=== PATIENT | female | born 1985 | race African-American/Black ===

== ENCOUNTER 2016-08-13 19:19 | Emergency (ER) | payer MEDICAID ==
--- NOTE | 2016-08-13 19:55 | ER Document Report ---
HPI - HPI Onset: Last week Onset/Duration: Gradual Pain Level: 2 Context: Patient is a 31-year-old female comes the ED complaining of a dry cough, nasal chris, and mild shortness of breath. She has also had a body ache and occ diarrhea. The symptoms have been ongoing for the last week. She has tried some neqf-vgr-aikgwgc meds with minimal relief. She still eating and drink without any problems. The cough is non-productive. Pt denies any smoking. Denies any fever, nasal discharge, ear pain, sore throat, palp, syncope, GRAHAM, abd pain, n/v, dysuria, or rash. Associated Symptoms: Body/muscle aches, Nonproductive cough, Diarrhea, Shortness of breath. denies: Chest pain, Chills, Earache, Fever, Headache, Hurts to breath, Leg swelling, Nausea, Vomiting, Rhinnorhea, Sinus pain/drainage , Sore throat, Sweating, Weakness Exacerbated by: Denies Relieved by: Denies - ROS Systems Reviewed and Negative: Yes All other systems reviewed and negative - REPRODUCTIVE Reproductive: REPORTS: : - DERM Skin Color: Normal Past Medical History - Social History Smoking Status: Never Smoker Chew tobacco use (# tins/day): No Frequency of alcohol use: Social Drug Abuse: None Family History: Reviewed & Not Pertinent Patient has suicidal ideation: No Patient has homicidal ideation: No - Past Medical History Cardiac Medical History: Reports: Hx Hypertension Denies: Hx Coronary Artery Disease, Hx Heart Attack, Hx Pulmonary Embolism, Hx Heart Murmur Pulmonary Medical History: Denies: Hx Asthma, Hx Bronchitis, Hx COPD, Hx Pneumonia, Hx Sleep Apnea - not current, Hx Tuberculosis Neurological Medical History: Denies: Hx Cerebrovascular Accident, Hx Seizures Endocrine Medical History: Renal/ Medical History: Reports: Hx Ovarian Cysts. Denies: Hx Peritoneal Dialysis GI Medical History: Reports: Hx Gastroesophageal Reflux Disease - with . Denies: Hx Hepatitis, Hx Hiatal Hernia, Hx Ulcer Musculoskeltal Medical History: Denies Hx Arthritis, Denies Hx Fibromyalgia Traumatic Medical History: Denies: Hx Fractures Infectious Medical History: Denies: Hx Hepatitis, Hx HIV Past Surgical History: Reports: Hx Cardiac Surgery - x 3, Hx Section - x3, Hx Tonsillectomy. Denies: Hx Hysterectomy, Hx Mastectomy, Hx Open Heart Surgery, Hx Pacemaker - Immunizations Hx Diphtheria, Pertussis, Tetanus Vaccination: Yes Vertical Provider Document - CONSTITUTIONAL Notes: PHYSICAL EXAMINATION: GENERAL: Well-appearing, well-nourished and in no acute distress. HEAD: Atraumatic, normocephalic. EYES: Pupils equal round and reactive to light, extraocular movements intact, sclera anicteric, conjunctiva are normal. ENT: EAC clear b/l. TM's intact b/l without erythema, fluid, or perforation. Nares patent and without discharge. oropharynx clear without exudates. No tonsilar hypertrophy or erythema. Moist mucous membranes. No sinus tenderness. NECK: Normal range of motion, supple without lymphadenopathy. No nuchal rigidity or meningismus. LUNGS: + mild rhonchi and wheeze to the rt lung. Left lung CTA. HEART: Regular rate and rhythm without murmurs, rubs, gallops. ABDOMEN: Soft, nontender, nondistended abdomen. No guarding, no rebound. No masses appreciated. Normal bowel sounds present. No CVA tenderness bilaterally. Musculoskeletal: FROM to passive/active. Strength 5+/5. Pt does have brace to left leg due to her Cerebral palsy. Extremities: No cyanosis, clubbing, or edema b/l. Peripheral pulses 2+. Capillary refill less than 3 seconds. NEUROLOGICAL: Cranial nerves grossly intact. Normal speech. Normal sensory, motor exams PSYCH: Normal mood, normal affect. SKIN: Warm, Dry, normal turgor, no rashes or lesions noted. - INFECTION CONTROL TRAVEL OUTSIDE OF THE [place] IN LAST 30 DAYS: No - RESPIRATORY O2 Sat by Pulse Oximetry: 100 Course - Re-evaluation Re-evalutation: Patient is an afebrile, well-hydrated, 31yo female who presents with a URI/cough , suspect viral. Vitals stable (pulse 96 on last check). CXR negative. Duoneb performed today which helped resolve the adventitious lung sounds on exam. Pt expressed improvement in breathing and overall condition. I will send her home with a medrol dose pack and inhaler. conservative measures otherwise: Maintain adequate fluid intake Take meds as directed/use inhaler as directed tylenol/ibuprofen as needed over the counter cold medication as needed for symptoms Humidified air may help F/u: with your PCM in 2-3 days for a recheck Return to the ED with any fever, worsening pain, chest pain, shortness of breath , trouble swallowing/breathing, abdominal pain, n/v/d, or worsening symptoms otherwise. After performing a Medical Screening Examination, I estimate there is LOW risk for ACUTE CORONARY SYNDROME, RESPIRATORY FAILURE, SEPSIS OR MENINGITIS, thus I consider the discharge disposition reasonable. I have reevaluated this patient multiple times and no significant life threatening changes are noted. The patient and I have discussed the diagnosis and risks, and we agree with discharging home with close follow-up. We also discussed returning to the Emergency Department immediately if new or worsening symptoms occur. We have discussed the symptoms which are most concerning (e.g., changing or worsening pain, trouble swallowing or breathing, neck stiffness, fever) that necessitate immediate return. 08/13/16 20:58 - Vital Signs Vital signs: Temp Pulse Resp BP Pulse Ox 98.0 F 104 H 20 149/99 H 100 08/13/16 19:24 08/13/16 19:24 08/13/16 19:24 08/13/16 19:24 08/13/16 19:24 Discharge - Discharge Clinical Impression: Cough Condition: Stable Disposition: HOME, SELF-CARE Additional Instructions: Maintain adequate fluid intake Take meds as directed/use inhaler as directed tylenol/ibuprofen as needed over the counter cold medication as needed for symptoms Humidified air may help F/u: with your PCM in 2-3 days for a recheck Return to the ED with any fever, worsening pain, chest pain, shortness of breath , trouble swallowing/breathing, abdominal pain, n/v/d, or worsening symptoms otherwise. Prescriptions: Albuterol Sulfate [Proair HFA Inhalation Aerosol 8.5 gm MDI] 2 puff IH Q4H PRN # 1 mdi PRN Reason: Methylprednisolone [Medrol Dosepack (4 mg/Tab) 21 Tab/Dosepak] 4 mg PO ASDIR PRN #21 tab.ds.pk PRN Reason: Forms: Elevated Blood Pressure Referrals: KAYCE BERNSTEIN NP [Primary Care Provider] - Follow up as needed
--- NOTE | 2016-08-13 20:19 | RADIOLOGY REPORT (SQ) ---
EXAM DESCRIPTION: CHEST PA/LAT COMPLETED DATE/TIME: 08/13/2016 8:09 pm REASON FOR STUDY: Cough, wheeze on right side COMPARISON: 02/20/2016. EXAM PARAMETERS: NUMBER OF VIEWS: two views TECHNIQUE: Digital Frontal and Lateral radiographic views of the chest acquired. RADIATION DOSE: NA LIMITATIONS: none FINDINGS: LUNGS AND PLEURA: No opacities, masses or pneumothorax. No pleural effusion. MEDIASTINUM AND HILAR STRUCTURES: No masses or contour abnormalities. HEART AND VASCULAR STRUCTURES: Heart normal size. No evidence for failure. BONES: No acute findings. HARDWARE: None in the chest. OTHER: No other significant finding. IMPRESSION: NO SIGNIFICANT RADIOGRAPHIC FINDING IN THE CHEST. TECHNICAL DOCUMENTATION: JOB ID: [id number] [employer]- All Rights Reserved
[2016-08-13] MEDS ORDERED: IPRATROPIUM/ALBUTEROL 0.5-2.5 MG/3 ML AMPUL NEB ONE (20:26)
[2016-08-13 21:12] VITALS: BP 139/90
== END 2016-08-13 21:11 | disposition home or self-care (01) ==
LOC: ER 19:19
DX: R05 Cough (principal); R06.02 Shortness of breath; R52 Pain, unspecified; R19.7 Diarrhea, unspecified
CPT/HCPCS: 94640; 99283; 71020; J7620

== ENCOUNTER 2016-10-26 14:23 | Emergency (ER) | payer MEDICAID ==
[2016-10-26 14:35] VITALS: BP 159/80
--- NOTE | 2016-10-26 15:08 | ER Document Report ---
HPI - HPI Patient complains to provider of: abscess Onset: Last week Onset/Duration: Persistent Quality of pain: Achy Pain Level: 2 Context: Patient presents complaining of abscess to the chest for the past week. Patient denies any fever. Patient denies any history of MRSA. Exacerbated by: Denies Relieved by: Denies Similar symptoms previously: Yes Recently seen / treated by doctor: No - ROS ROS below otherwise negative: Yes Systems Reviewed and Negative: Yes All other systems reviewed and negative - CONSTITUTIONAL Constitutional: DENIES: Fever, Chills - GASTROINTESTINAL Gastrointestinal: DENIES: Nausea, Patient vomiting - DERM Skin Color: Normal Notes: Abscess Past Medical History - General Information source: Patient - Social History Smoking Status: Never Smoker Frequency of alcohol use: None Drug Abuse: None Occupation: None Lives with: Family Family History: Reviewed & Not Pertinent - Medical History Medical History: Other - Cerebral palsy - Past Medical History Cardiac Medical History: Reports: Hx Hypertension Denies: Hx Coronary Artery Disease, Hx Heart Attack, Hx Pulmonary Embolism, Hx Heart Murmur Pulmonary Medical History: Denies: Hx Asthma, Hx Bronchitis, Hx COPD, Hx Pneumonia, Hx Sleep Apnea - not current, Hx Tuberculosis Neurological Medical History: Denies: Hx Cerebrovascular Accident, Hx Seizures Endocrine Medical History: Renal/ Medical History: Reports: Hx Ovarian Cysts. Denies: Hx Peritoneal Dialysis GI Medical History: Reports: Hx Gastroesophageal Reflux Disease - with . Denies: Hx Hepatitis, Hx Hiatal Hernia, Hx Ulcer Musculoskeltal Medical History: Denies Hx Arthritis, Denies Hx Fibromyalgia Traumatic Medical History: Denies: Hx Fractures Infectious Medical History: Denies: Hx Hepatitis, Hx HIV Past Surgical History: Reports: Hx Cardiac Surgery - x 3, Hx Section - x3, Hx Tonsillectomy - Immunizations Hx Diphtheria, Pertussis, Tetanus Vaccination: Yes Vertical Provider Document - CONSTITUTIONAL Agree With Documented VS: Yes Exam Limitations: No Limitations General Appearance: WD/WN, No Apparent Distress - INFECTION CONTROL TRAVEL OUTSIDE OF THE [place] IN LAST 30 DAYS: No - HEENT HEENT: Atraumatic, Normocephalic - NECK Neck: Normal Inspection - RESPIRATORY Respiratory: No Respiratory Distress O2 Sat by Pulse Oximetry: 100 - BACK Back: Normal Inspection - MUSCULOSKELETAL/EXTREMETIES Musculoskeletal/Extremeties: MAEW - NEURO Level of Consciousness: Awake, Alert, Appropriate Motor/Sensory: No Motor Deficit - DERM Integumentary: Warm, Dry, Abscess - anterior chest wall abscess, skin erythematous over lesion Course - Re-evaluation Re-evalutation: 10/26/16 16:06 RN advised of need for I&D setup 10/26/16 16:08 The patient has been informed that they may have pre-hypertension or hypertension based on a blood pressure reading in the emergency department. I recommend that patient call the primary care provider listed on their discharge instructions or a physician of their choice by this week to arrange follow-up for further evaluation of possible pre-hypertension or hypertension. - Vital Signs Vital signs: Temp Pulse Resp BP Pulse Ox 97.9 F 91 18 159/80 H 100 10/26/16 14:33 10/26/16 14:33 10/26/16 14:33 10/26/16 14:33 10/26/16 14:33 Procedures - Incision and Drainage Chest Type: Simple Anesthetic type: 1% Lidocaine Blade size: 11 I&D procedure: Betadine prep applied Incision Method: Incision made by scalpel Amount/type of drainage: A scant amount of purulent drainage Adult Front & Back picture: 1 - Abscess Discharge - Discharge Clinical Impression: Abscess, Elevated blood pressure reading Condition: Stable Disposition: HOME, SELF-CARE Instructions: Abscess ([facility]), Cephalexin ([facility]), Oral Narcotic Medication ([facility]), Post Incision and Drainage, Trimethoprim-Sulfa ([facility]) Additional Instructions: Return immediately for any new or worsening symptoms Followup with your primary care provider, call tomorrow to make a followup appointment Prescriptions: Cephalexin Monohydrate [Keflex 500 mg Capsule] 500 mg PO Q6H 5 Days capsule Hydrocodone/Acetaminophen [Dalton 5-325 Tablet] 1 each PO Q4 PRN #8 tablet PRN Reason: Sulfamethoxazole/Trimethoprim [Bactrim Ds Tablet] 1 each PO BID #14 tablet Forms: Elevated Blood Pressure Referrals: [facility] [Primary Care Provider] - Follow up as needed
== END 2016-10-26 16:29 | disposition home or self-care (01) ==
LOC: ER 14:23
PROC: 0H95XZZ Drainage of Chest Skin, External Approach (ICD-10-PCS; principal; 2016-10-26)
DX: L02.213 Cutaneous abscess of chest wall (principal); I10 Essential (primary) hypertension
CPT/HCPCS: 99283

== ENCOUNTER → 2016-12-17 | Outpatient (CLI) | payer MEDICAID ==
--- NOTE | 2016-12-17 10:35 | RADIOLOGY REPORT (SQ) ---
EXAM DESCRIPTION: CHEST PA/LATERAL COMPLETED DATE/TIME: 12/17/2016 10:26 am REASON FOR STUDY: COUGH COMPARISON: 08/13/2016 EXAM PARAMETERS: NUMBER OF VIEWS: two views TECHNIQUE: Digital Frontal and Lateral radiographic views of the chest acquired. RADIATION DOSE: NA LIMITATIONS: none FINDINGS: LUNGS AND PLEURA: No opacities, masses or pneumothorax. No pleural effusion. MEDIASTINUM AND HILAR STRUCTURES: No masses or contour abnormalities. HEART AND VASCULAR STRUCTURES: Heart normal size. No evidence for failure. BONES: No acute findings. HARDWARE: None in the chest. OTHER: No other significant finding. IMPRESSION: NO SIGNIFICANT RADIOGRAPHIC FINDING IN THE CHEST. TECHNICAL DOCUMENTATION: JOB ID: [id number] [employer]- All Rights Reserved
== END ==
LOC: OD 10:09
PROVIDERS: ATTEND Physician Assistant
DX: R05 Cough (principal)
CPT/HCPCS: 71020

== ENCOUNTER → 2017-05-18 | Outpatient (CLI) | payer MEDICAID | LOC: OD 14:17 | PROVIDERS: ATTEND Nurse Practitioner Acute Care | DX: R30.0 Dysuria (principal) | CPT/HCPCS: 87086; 87088; 87186 ==

== ENCOUNTER → 2017-06-21 | Outpatient (CLI) | payer MEDICAID ==
[2017-06-21 14:28] LABS: EPITHELIALS (WET MOUNT) 4+ EPITHELIALS SEEN; T.VAGINALIS (WET MOUNT) NO TRICHOMONAS SEEN; WBCS (WET MOUNT) RARE WBCS SEEN; YEAST (WET MOUNT) BUDDING YEAST SEEN
[2017-06-21 15:57] LABS: CHLAM PCR NOT DETECTED (NOT DETECT); GON PCR NOT DETECTED (NOT DETECT)
== END ==
LOC: LAB 14:21
PROVIDERS: ATTEND Nurse Practitioner Acute Care
DX: N89.8 Other specified noninflammatory disorders of vagina (principal)
CPT/HCPCS: 87210; 87491; 87591

== ENCOUNTER 2017-08-15 10:40 | Observation (INO) | payer MEDICAID ==
--- NOTE | 2017-08-15 11:01 | ER Document Report ---
ED Medical Screen (RME) - General Chief Complaint: Chest Pain Stated Complaint: CHEST PAIN Time Seen by Provider: 08/15/17 10:58 Mode of Arrival: Ambulatory Information source: Patient Notes: This is a pleasant 32-year-old female that presents to the emergency room with intermittent palpitations for the past 2 weeks. Patient describes these palpitations as sharp "twitching" in the center of her chest which is nonradiating. There is no exacerbating or relieving factors. She does feel like her heart is beating fast. She denies any radiation of any discomfort. She denies any exertional chest pain or shortness of breath. She is currently on no medicines. She did have her fourth in February of last year which was complicated by some chest pain as well as postoperative infection and she was hospitalized here at that time. She did have an echo on February 20, 2017 which showed a good ejection fraction. Patient does report being under a lot of stress lately with family issues surrounding the of her mother a year ago. I have greeted and performed a rapid initial assessment of this patient. A comprehensive ED assessment and evaluation of the patient, analysis of test results and completion of medical decision making process we will be contacted by additional ED providers. TRAVEL OUTSIDE OF THE [place] IN LAST 30 DAYS: No - Related Data Allergies/Adverse Reactions: latex [Latex] Allergy (Severe, Verified 08/15/17 10:40) Rash, itchy Past Medical History - Social History Chew tobacco use (# tins/day): No Frequency of alcohol use: None Drug Abuse: None - Past Medical History Cardiac Medical History: Reports: Hx Hypertension Denies: Hx Coronary Artery Disease, Hx Heart Attack, Hx Pulmonary Embolism, Hx Heart Murmur Pulmonary Medical History: Denies: Hx Asthma, Hx Bronchitis, Hx COPD, Hx Pneumonia, Hx Sleep Apnea - not current, Hx Tuberculosis Neurological Medical History: Denies: Hx Cerebrovascular Accident, Hx Seizures Endocrine Medical History: Renal/ Medical History: Reports: Hx Ovarian Cysts. Denies: Hx Peritoneal Dialysis GI Medical History: Reports: Hx Gastroesophageal Reflux Disease - with . Denies: Hx Hepatitis, Hx Hiatal Hernia, Hx Ulcer Musculoskeltal Medical History: Denies Hx Arthritis, Denies Hx Fibromyalgia Traumatic Medical History: Denies: Hx Fractures Infectious Medical History: Denies: Hx Hepatitis, Hx HIV Past Surgical History: Reports: Hx Cardiac Surgery - x 3, Hx Section - x3, Hx Tonsillectomy. Denies: Hx Hysterectomy, Hx Mastectomy, Hx Open Heart Surgery, Hx Pacemaker - Immunizations Hx Diphtheria, Pertussis, Tetanus Vaccination: Yes Physical Exam - Vital signs Vitals: Temp Pulse Resp BP Pulse Ox 99.0 F 86 16 157/88 H 100 08/15/17 10:50 08/15/17 10:50 08/15/17 10:50 08/15/17 10:50 08/15/17 10:50 Course - Vital Signs Vital signs: Temp Pulse Resp BP Pulse Ox 99.0 F 86 16 157/88 H 100 08/15/17 10:50 08/15/17 10:50 08/15/17 10:50 08/15/17 10:50 08/15/17 10:50 Doctor's Discharge - Discharge Referrals: PATTY ICFUENTES NP [Primary Care Provider] - Follow up as needed
--- NOTE | 2017-08-15 11:15 | ER Document Report ---
ED General - General Chief Complaint: Chest Pain Stated Complaint: CHEST PAIN Time Seen by Provider: 08/15/17 10:58 Mode of Arrival: Ambulatory TRAVEL OUTSIDE OF THE [place] IN LAST 30 DAYS: No - HPI Notes: 32-year-old female presents to the ED today with complaints of sudden onset chest pain with numbness and tingling down her left arm that started today approximately 4 hours ago. Patient states she has had intermittent palpitations over the course of the last 2 weeks. Has not taken any baby aspirin or blood thinners. She describes chest pain as a "tugging". Denies any trauma to chest. Father from a cerebral aneurysm at the age of 26, mother from complications of CHF and hypertension at the age of 56. Patient states she said on smoker, drinks socially. Does not take any control. Pain is present at rest, denies any nausea or vomiting. Denies any rashes. Last menstrual period July 20 - Related Data Allergies/Adverse Reactions: latex [Latex] Allergy (Severe, Verified 08/15/17 10:40) Rash, itchy Past Medical History - General Information source: Patient - Social History Smoking Status: Never Smoker Chew tobacco use (# tins/day): No Frequency of alcohol use: None Drug Abuse: None Family History: Reviewed & Not Pertinent Patient has suicidal ideation: No Patient has homicidal ideation: No - Past Medical History Cardiac Medical History: Reports: Hx Hypertension Denies: Hx Coronary Artery Disease, Hx Heart Attack, Hx Pulmonary Embolism, Hx Heart Murmur Pulmonary Medical History: Denies: Hx Asthma, Hx Bronchitis, Hx COPD, Hx Pneumonia, Hx Sleep Apnea - not current, Hx Tuberculosis Neurological Medical History: Denies: Hx Cerebrovascular Accident, Hx Seizures Endocrine Medical History: Renal/ Medical History: Reports: Hx Ovarian Cysts. Denies: Hx Peritoneal Dialysis GI Medical History: Reports: Hx Gastroesophageal Reflux Disease - with . Denies: Hx Hepatitis, Hx Hiatal Hernia, Hx Ulcer Musculoskeltal Medical History: Denies Hx Arthritis, Denies Hx Fibromyalgia Traumatic Medical History: Denies: Hx Fractures Infectious Medical History: Denies: Hx Hepatitis, Hx HIV Past Surgical History: Reports: Hx Cardiac Surgery - x 3, Hx Section - x3, Hx Tonsillectomy. Denies: Hx Hysterectomy, Hx Mastectomy, Hx Open Heart Surgery, Hx Pacemaker - Immunizations Hx Diphtheria, Pertussis, Tetanus Vaccination: Yes Review of Systems - Review of Systems Constitutional: No symptoms reported EENT: No symptoms reported Cardiovascular: See HPI Respiratory: No symptoms reported Gastrointestinal: No symptoms reported Genitourinary: No symptoms reported Female Genitourinary: No symptoms reported Musculoskeletal: No symptoms reported Skin: No symptoms reported Hematologic/Lymphatic: No symptoms reported Neurological/Psychological: No symptoms reported Physical Exam - Vital signs Vitals: Temp Pulse Resp BP Pulse Ox 99.0 F 86 16 157/88 H 100 08/15/17 10:50 08/15/17 10:50 08/15/17 10:50 08/15/17 10:50 08/15/17 10:50 - Notes Notes: PHYSICAL EXAMINATION: GENERAL: Well-appearing, well-nourished and in no acute distress. HEAD: Atraumatic, normocephalic. EYES: Pupils equal round and reactive to light, extraocular movements intact, conjunctiva are normal. ENT: Nares patent, oropharynx clear without exudates. Moist mucous membranes. NECK: Normal range of motion, supple without lymphadenopathy LUNGS: Breath sounds clear to auscultation bilaterally and equal. No wheezes rales or rhonchi. HEART: Regular rate and rhythm without murmurs. Unable to reproduce chest pain that brought patient to the emergency room. ABDOMEN: Soft, nontender, nondistended abdomen. No guarding, no rebound. No masses appreciated. Female : deferred Musculoskeletal: Normal range of motion, no pitting or edema. No cyanosis. NEUROLOGICAL: Cranial nerves grossly intact. Normal speech, normal gait. Normal sensory, motor exams PSYCH: Normal mood, normal affect. SKIN: Warm, Dry, normal turgor, no rashes or lesions noted. Course - Re-evaluation Re-evalutation: 08/15/17 17:13 32-year-old female is afebrile, vitals stable status presents for evaluation of chest pain and left arm numbness and tingling, patient given a nitro, patient states she had relief from nitro for chest pain. CBC negative for leukocytosis or anemia, CMP negative for renal or hepatic dysfunction. Cardiac enzymes negative. EKG negative for STEMI. Chest x-ray negative. Patient states she had resolution of left arm numbness and tingling. negative. TSH normal. Due to the fact that patient had chest pain resolution with left arm numbness think is appropriate to have patient be in observation to monitor for unstable angina. Consulted with Dr. Swanson, hospitalist at 12:30, will admit to observation. Patient informed of plan of care, all questions and concerns answered by this provider. Patient agreed with plan of care. Patient admitted under medical service - Vital Signs Vital signs: Temp Pulse Resp BP Pulse Ox 98.4 F 77 16 122/71 100 08/15/17 16:27 08/15/17 16:27 08/15/17 16:27 08/15/17 16:27 08/15/17 16:27 - Laboratory Result Diagrams: 08/15/17 11:25 08/15/17 11:25 Laboratory results interpreted by me: 08/15/17 08/15/17 11:25 11:25 Hgb 8.8 L Hct 27.4 L MCV 65 L MCH 20.8 L MCHC 31.9 L RDW 17.8 H Creatine Kinase 300 H Discharge - Discharge Clinical Impression: Unstable angina Condition: Stable Disposition: ADMITTED OBSERVATION Admitting Provider: Hospitalist - Dr. Amanda Lim Unit Admitted: Telemetry Referrals: PATTY CIFUENTES NP [NURSE PRACTITIONER] - Follow up as needed
[2017-08-15] MEDS ORDERED: NITROGLYCERIN 0.4 MG/TAB 25 TAB/BOTTLE SL ONE (11:34)
[2017-08-15] MEDS ORDERED: ASPIRIN 81 MG TABLET, CHEWABLE PO ONE (11:34)
[2017-08-15 11:47] LABS: ABSOLUTE EOSINOPHILS # (AUTO) 0.2 10^3/uL (0.0-0.6); ABSOLUTE LYMPHOCYTES (AUTO) 1.3 10^3/uL (0.5-4.7); ABSOLUTE MONOCYTES (AUTO) 0.3 10^3/uL (0.1-1.4); ABSOLUTE NEUT (AUTO) 4.9 10^3/uL (1.7-8.2); BASOPHILS % (AUTO) 0.4 % (0-2); EOSINOPHILS % (AUTO) 2.4 % (0-6); HEMATOCRIT 27.4 % (36.0-47.0); HEMOGLOBIN 8.8 g/dL (12.0-15.5); LYMPHOCYTES % (AUTO) 19.6 % (13-45); MEAN CORPUSCULAR HEMOGLOBIN 20.8 pg (27.0-33.4); MEAN CORPUSCULAR HGB CONC 31.9 g/dL (32.0-36.0); MEAN CORPUSCULAR VOLUME 65 fl (80-97); PLATELET COUNT 308 10^3/uL (150-450); RED BLOOD COUNT 4.22 10^6/uL (3.72-5.28); RED CELL DISTRIBUTION WIDTH 17.8 % (11.5-14.0); SEGMENTED NEUTROPHILS % (AUTO) 72.6 % (42-78); TOTAL CELLS COUNTED % (AUTO) 100 %; WHITE BLOOD COUNT 6.7 10^3/uL (4.0-10.5)
--- NOTE | 2017-08-15 12:00 | RADIOLOGY REPORT (SQ) ---
EXAM DESCRIPTION: CHEST SINGLE VIEW COMPLETED DATE/TIME: 08/15/2017 11:44 am REASON FOR STUDY: palpitations COMPARISON: 2016. NUMBER OF VIEWS: One view. TECHNIQUE: Single frontal radiographic view of the chest acquired. LIMITATIONS: None. FINDINGS: LUNGS AND PLEURA: No opacities, masses or pneumothorax. No pleural effusion. MEDIASTINUM AND HILAR STRUCTURES: No masses. Contour normal. HEART AND VASCULAR STRUCTURES: Heart normal in size. Normal vasculature. BONES: No acute findings. HARDWARE: None in the chest. OTHER: No other significant finding. IMPRESSION: NO SIGNIFICANT RADIOGRAPHIC FINDING IN THE CHEST. TECHNICAL DOCUMENTATION: JOB ID: [id number] [employer]- All Rights Reserved Reading location - IP/workstation name: [email or web address]
[2017-08-15 12:02] LABS: ALANINE AMINOTRANSFERASE 20 U/L (9-52); ALKALINE PHOSPHATASE 51 U/L (38-126); ANION GAP 11 (5-19); ASPARTATE AMINO TRANSFERASE 26 U/L (14-36); BILIRUBIN,DIRECT 0.2 mg/dL (0.0-0.4); BILIRUBIN,TOTAL 0.3 mg/dL (0.2-1.3); BLOOD UREA NITROGEN 8 mg/dL (7-20); CARBON DIOXIDE 26 mmol/L (22-30); CHLORIDE 106 mmol/L (98-107); CREATINE KINASE 300 U/L (30-135); GLUCOSE 93 mg/dL (75-110); POTASSIUM 3.9 mmol/L (3.6-5.0); SODIUM 142.6 mmol/L (137-145); TOTAL PROTEIN 7.4 g/dL (6.3-8.2)
[2017-08-15 12:11] LABS: CREATINE KINASE MB 1.11 ng/mL (<4.55); TROPONIN I < 0.012 ng/mL
[2017-08-15] MEDS ORDERED: NORMAL SALINE 1000 ML 1,000 ML IV PRN (12:28)
[2017-08-15] MEDS ORDERED: METOPROLOL TARTRATE 25 MG TABLET PO STA (12:55)
[2017-08-15 13:20] LABS: APPEARANCE,URINE SLIGHTLY-CLOUDY; BILIRUBIN,URINE NEGATIVE (NEGATIVE); COLOR,URINE YELLOW; GLUCOSE, URINE NEGATIVE (NEGATIVE); KETONES,URINE NEGATIVE (NEGATIVE); LEUKOCYTE ESTERASE,URINE NEGATIVE (NEGATIVE); NITRITE,URINE NEGATIVE (NEGATIVE); PROTEIN,URINE NEGATIVE (NEGATIVE); URINE SPECIFIC GRAVITY 1.017; UROBILINOGEN,URINE NEGATIVE mg/dL (<2.0)
[2017-08-15] MEDS ORDERED: LORAZEPAM 1 MG TABLET PO PRN (13:34)
[2017-08-15] MEDS ORDERED: ACETAMINOPHEN 325 MG TABLET ONE (15:51)
[2017-08-15] MEDS: ASPIRIN 325 MG TABLET PO SCH (15:55)
[2017-08-15] MEDS: ACETAMINOPHEN 325 MG TABLET PO PRN (15:57)
[2017-08-15] MEDS: MORPHINE SULFATE 10 MG/ML INJ IV PRN (17:39)
--- NOTE | 2017-08-15 17:50 | HISTORY AND PHYSICAL E ---
History and Physical NAME: JAYASHREE THEODORE : 1985 AGE: 32Y ADMITTED: 08/15/2017 ROOM: 425 REASON FOR CONSULT: Chest pain. HISTORY OF PRESENT ILLNESS: The patient is a pleasant 32-year-old female, who does not have any past medical history of any problems. The patient came to the emergency room with chest pain that started 2 weeks ago, retrosternal. Radiated to her left arm and the shoulder, with numbness of the shoulder and shoulder blades. The patient was getting bad on and off, more frequent, lasting a few minutes. No aggravating or alleviating factors. No nausea or vomiting. No fever, no cough. She has the family history of coronary artery disease. Her mother of a heart attack at age 54. Chest x-ray was unremarkable and cardiac enzymes were unremarkable. EKG was normal. REVIEW OF SYSTEMS: GENERAL: No fever, no chills. No weight loss. HEENT: Head: No headache. Eyes: No discharge from eyes. Nose: No discharge from nose. No deformity. *------* NECK: No pain. No thyromegaly. No lymphadenopathy. CARDIOVASCULAR: As in history of present illness. RESPIRATORY: No cough, no wheezing, no hemoptysis. GASTROINTESTINAL: She has nausea. No vomiting, no diarrhea. No bowel habit change. MUSCULOSKELETAL: No joint deformity or swelling. PAST MEDICAL HISTORY: None. PAST SURGICAL HISTORY: x3, tonsillectomy. HOME MEDICATIONS: None. FAMILY HISTORY: Positive for heart attack in her mother. She of a heart attack at age 54. SOCIAL HISTORY: Nonsmoker or drinker. She stays at home with her kids. PHYSICAL EXAMINATION: GENERAL: Patient is lying in bed, comfortable, not in distress. VITAL SIGNS: Blood pressure 136/92, heart rate 81, afebrile. Respiratory 16, saturation 100% on room air. HEENT: Normocephalic, atraumatic. Pupils round, reactive to light and accommodation bilaterally. Extraocular muscles intact. Ears: Tympanic membranes intact bilaterally. No discharge from the ear. No discharge from the nose. Mucous membranes moist. NECK: Supple. No increased JVD. No thyromegaly, no lymphadenopathy. CARDIOVASCULAR: Normal S1, S2. Regular rate and rhythm. No murmur, no gallop. RESPIRATORY: Lungs clear. ABDOMEN: Soft, nontender. MUSCULOSKELETAL: No edema. NEUROLOGICAL: Awake, alert. SKIN: No rash. LABORATORY DATA: White blood count 6.7, hemoglobin 8.8, hematocrit 27. Sodium 142, potassium 3.9, creatinine 0.6. Chest x-ray unremarkable. EKG was unremarkable, no change. ASSESSMENT: 1. CHEST PAIN, RULE OUT NH. 2. ANXIETY. PLAN: Will admit the patient for observation. Will follow serial cardiac enzymes. Aspirin, nitroglycerin, morphine, metoprolol, Lipitor. Labs, fasting lipid profile, 3 sets of cardiac enzymes. Ativan p.r.n. for anxiety. DISPOSITION: Possible discharge home tomorrow. DICTATING PHYSICIAN: NIKKI PENN M.D. [id number] PHY#: [id number] ID: [id number] JOB#: [id number] ACCT: [id number] cc:NIKKI PENN M.D. >
[2017-08-16 00:44] LABS: TROPONIN I < 0.012 ng/mL
[2017-08-16] MEDS: ACETAMINOPHEN 325 MG TABLET PO PRN ×2 (07:03→17:37)
[2017-08-16] MEDS: NITROGLYCERIN 0.4 MG/TAB 25 TAB/BOTTLE SL PRN ×2 (07:04→17:38)
[2017-08-16 07:07] LABS: CREATINE KINASE MB 0.63 ng/mL (<4.55)
[2017-08-16 07:12] LABS: TROPONIN I < 0.012 ng/mL
[2017-08-16 07:17] LABS: CHOLESTEROL 135.83 mg/dL (0-200); TRIGLYCERIDES 58 mg/dL (<150)
[2017-08-16 07:28] LABS: DIRECT LDL 71 mg/dL (<100)
--- NOTE | 2017-08-16 07:51 | EKG REPORT ---
SEVERITY:- NORMAL ECG - SINUS RHYTHM : Confirmed by: Chip Andino MD 16-Aug-2017 07:50:34
[2017-08-16] MEDS: ENOXAPARIN SODIUM INJ 40 MG/0.4 ML DISP.SYRIN SUBCUT SCH (09:24)
[2017-08-16] MEDS: ASPIRIN 325 MG TABLET PO SCH (09:24)
--- NOTE | 2017-08-16 16:36 | XCELERA REPORT ---
[address] [address] Transthoracic Echocardiogram Report Name: JAYASHREE THEODORE Age: 32 yrs Gender: Female : 1985 Patient Status: Inpatient Patient Location: [address] [place] [address] Study Date: 08/16/2017 02:53 PM Height: 66 in Weight: 227 lb BSA: 2.1 m2 Procedure: A two-dimensional transthoracic echocardiogram with color flow and Doppler was performed. The study was technically difficult with many images being suboptimal in quality. Reason For Study: CHEST PAIN History: CHEST PAIN. Ordering Physician: ANDI PEREZ Performed By: Ervin Bolaños Interpretation Summary The left ventricle is normal in size. There is normal left ventricular wall thickness. Left ventricular systolic function is normal. LV EF is > THAN 60% Doppler measurements suggest normal left ventricular diastolic function No gross wall motion abnormality. There is no thrombus. There is no ventricular septal defect visualized. The right ventricle is grossly normal size. The left atrial size is normal. There is no mitral valve stenosis. There is no evidence of mitral valve prolapse. There is a trace amount of mitral regurgitation There is no aortic valve stenosis There is no LVOT obstruction. No aortic regurgitation is present. There is no tricuspid stenosis. There is a mild amount of tricuspid regurgitation There is moderate pulmonary hypertension by echo RVSP is 54 mm of Hg with RA mean of 5. There is no pericardial effusion. MMode/2D Measurements & Calculations RVDd: 3.3 cm LVIDd: 6.0 cm FS: 37.1 % Ao root diam: 3.1 cm IVSd: 0.83 cm LVIDs: 3.8 cm EDV(Teich): 178.8 ml LVPWd: 0.79 cmESV(Teich): 60.6 ml Ao root area: 7.4 cm2 EF(Teich): 66.1 % LA dimension: 3.7 cm LVOT diam: 2.1 cm LVOT area: 3.4 cm2 Doppler Measurements & Calculations MV E max corey: MV P1/2t max corey: Ao V2 max: LV V1 max P.5 cm/sec 100.4 cm/sec 127.9 cm/sec 1.9 mmHg MV A max corey: MV P1/2t: 55.3 msec Ao max PG: LV V1 max: 63.2 cm/sec MVA(P1/2t): 4.0 cm2 6.5 mmHg 68.3 cm/sec MV E/A: 1.3 MV dec slope: TAYLER(V,D): 1.8 cm2 532.4 cm/sec2 MV dec time: 0.19 sec PA V2 max: TR max corey: 87.9 cm/sec 347.5 cm/sec PA max PG: TR max P.3 mmHg 3.1 mmHg Left Ventricle The left ventricle is normal in size. There is normal left ventricular wall thickness. Left ventricular systolic function is normal. LV EF is > THAN 60%. Doppler measurements suggest normal left ventricular diastolic function. No gross wall motion abnormality. There is no thrombus. There is no ventricular septal defect visualized. Right Ventricle The right ventricle is grossly normal size. Atria The right atrium is normal. The left atrial size is normal. The interatrial septum is intact with no evidence for an atrial septal defect. Mitral Valve There is no evidence of mitral valve prolapse. There is no vegetation seen on the mitral valve. There is no mitral valve stenosis. There is a trace amount of mitral regurgitation. Aortic Valve There is no aortic valvular vegetation. There is no aortic valve stenosis. There is no LVOT obstruction. No aortic regurgitation is present. Tricuspid Valve There is no tricuspid stenosis. There is a mild amount of tricuspid regurgitation. There is moderate pulmonary hypertension by echo. RVSP is 54 mm of Hg with RA mean of 5. Pulmonic Valve There is no pulmonic valvular stenosis. There is a trace amount of pulmonic regurgitation. Great Vessels The aortic root is normal size. Effusions There is no pericardial effusion. : ANDI PEREZ > Bia Bird
[2017-08-16] MEDS: MORPHINE SULFATE 10 MG/ML INJ IV PRN (18:13)
[2017-08-16] MEDS ORDERED: POLYETHYLENE GLYCOL 3350 POWDER 17 GM/1 PACKET PO ONE (21:00)
--- NOTE | 2017-08-16 21:40 | PDOC PROGRESS REPORT ---
Subjective Progress Note for:: 08/16/17 Subjective:: 32-year-old female presenting with chest pain, found to have negative troponins and an EKG without ischemic changes. Ordering stress test, will be done tomorrow morning. Also check transthoracic echo. Patient describes twitching sensation in her chest, that she also characterizes as fluttering. No changes were found on telemetry overnight regarding this event. If testing results negative patient may benefit from a Holter monitor at discharge. Reason For Visit: CHEST PAIN Physical Exam Vital Signs: Temp Pulse Resp BP Pulse Ox 97.8 F 97 17 136/86 H 100 08/16/17 16:00 08/16/17 19:00 08/16/17 16:00 08/16/17 17:43 08/16/17 16:00 Intake & Output 08/15/17 08/16/17 08/17/17 06:59 06:59 06:59 Intake Total 522 1050 Balance 522 1050 Weight 103.4 kg 103.4 kg General appearance: PRESENT: no acute distress, obese Head exam: PRESENT: atraumatic, normocephalic Eye exam: PRESENT: EOMI Ear exam: PRESENT: normal external ear exam. ABSENT: bleeding Mouth exam: PRESENT: moist, neck supple Throat exam: ABSENT: tonsillar exudate, tonsillogmegaly Neck exam: ABSENT: tenderness, thyromegaly Respiratory exam: ABSENT: rales, rhonchi, wheezes Cardiovascular exam: PRESENT: RRR, +S1, +S2 Pulses: PRESENT: normal radial pulses, normal dorsalis pedis pul GI/Abdominal exam: PRESENT: soft. ABSENT: ascites, mass, rebound, rigid Extremities exam: ABSENT: joint swelling, pedal edema Musculoskeletal exam: PRESENT: full ROM, normal inspection Neurological exam: PRESENT: altered, oriented to person, oriented to place, oriented to time, oriented to situation Psychiatric exam: ABSENT: agitated, anxious Focused psych exam: ABSENT: euphoric, paranoid, pressured speech Skin exam: PRESENT: normal color. ABSENT: dry, mottled Results Laboratory Results: 08/16/17 08/16/17 05:30 05:30 Triglycerides 58 Cholesterol 135.83 LDL Cholesterol Direct 71 VLDL Cholesterol 12.0 HDL Cholesterol 52 TSH 2.60 08/15/17 08/15/17 08/15/17 17:10 17:10 23:40 Creatine Kinase 249 H 209 H CK-MB (CK-2) Troponin I < 0.012 08/15/17 08/16/17 08/16/17 23:40 05:30 05:30 Creatine Kinase 177 H CK-MB (CK-2) 0.80 0.63 Troponin I < 0.012 < 0.012 Impressions: Chest X-Ray 08/15/17 10:59 IMPRESSION: NO SIGNIFICANT RADIOGRAPHIC FINDING IN THE CHEST. Assessment & Plan - Diagnosis (1) Unstable angina Is this a current diagnosis for this admission?: Yes Plan: Received serial troponins that were negative for elevation, EKG was not significant for ischemic changes. Patient needs a stress test to finish ruling out cardiac etiology. Test will be done tomorrow morning. Transthoracic echo ordered. (2) Cerebral palsy Qualifiers: Is this a current diagnosis for this admission?: Yes Plan: Patient has a long history of cerebral palsy and uses a brace for her left leg. Noted CK mild elevation on labs, likely secondary to this condition. (3) Essential hypertension Is this a current diagnosis for this admission?: Yes Plan: Blood pressure controlled, continue her current medications. - Time Time Spent with patient: 15-24 minutes
[2017-08-16] MEDS: METOPROLOL TARTRATE 25 MG TABLET PO SCH (21:42)
[2017-08-17] MEDS ORDERED: POLYETHYLENE GLYCOL 3350 POWDER 17 GM/1 PACKET PO SCH (10:00)
[2017-08-17] MEDS: METOPROLOL TARTRATE 25 MG TABLET PO SCH (11:24)
[2017-08-17] MEDS: ENOXAPARIN SODIUM INJ 40 MG/0.4 ML DISP.SYRIN SUBCUT SCH (11:24)
[2017-08-17] MEDS: ASPIRIN 325 MG TABLET PO SCH (11:24)
[2017-08-17] MEDS ORDERED: REGADENOSON INJ 0.4 MG/5 ML DISP.SYRIN IV ONE (13:55)
[2017-08-17 15:15] VITALS: BP 129/64
--- NOTE | 2017-08-18 07:02 | PDOC DISCHARGE SUMMARY ---
General - Admit/Disc Date/PCP Admission Date/Primary Care Provider: 08/15/17 13:03 Discharge Date: 08/17/17 - Discharge Diagnosis (1) Unstable angina Is this a current diagnosis for this admission?: Yes (2) Cerebral palsy Is this a current diagnosis for this admission?: Yes (3) Essential hypertension Is this a current diagnosis for this admission?: Yes (4) Depression Is this a current diagnosis for this admission?: Yes - Additional Information Resuscitation Status: Full Code Discharge Diet: Regular Discharge Activity: Activity As Tolerated Prescriptions: Fluoxetine HCl [Prozac] 10 mg PO DAILY 30 Days #30 capsule Metoprolol Tartrate [Lopressor 25 mg Tablet] 12.5 mg PO Q12 30 Days #15 tablet Home Medications: Fluoxetine HCl [Prozac] 10 mg PO DAILY 30 Days #30 capsule 08/17/17 Metoprolol Tartrate [Lopressor 25 mg Tablet] 12.5 mg PO Q12 30 Days #15 tablet 08/17/17 History of Present Illness Patient complains of: chest pain History of Present Illness: JAYASHREE THEODORE is a 32 year old female with PMH of cerebral palsy. Presented with a complaint of chest pain with radiation down her left arm occuring on and off for the last 2 weeks. Hospital Course Hospital Course: Patient was evaluated with serial troponins, ekg, and stess test. All found to be without signs of ischemia or infarct. She was found to have mild hypertension and was started on low dose Metoprolol. Patient admitted to significant stress in her life with the of her mother and other family obligations. She was tearful during exam and admitted to depressed feelings and loss of interest in activities that she used to enjoy. She was started on Prozac at discharge. Physical Exam Vital Signs: Temp Pulse Resp BP Pulse Ox 98.3 F 110 H 16 129/64 H 100 08/17/17 15:14 08/17/17 15:14 08/17/17 15:14 08/17/17 15:14 08/17/17 15:14 Intake & Output 08/16/17 08/17/17 08/18/17 06:59 06:59 06:59 Intake Total 522 1810 Balance 522 1810 Weight 103.4 kg 102.8 kg General appearance: PRESENT: no acute distress, cooperative Head exam: PRESENT: atraumatic, normocephalic Eye exam: PRESENT: EOMI, PERRLA Ear exam: PRESENT: normal external ear exam. ABSENT: bleeding Mouth exam: PRESENT: moist, neck supple Throat exam: ABSENT: tonsillar exudate, tonsillogmegaly Neck exam: PRESENT: full ROM. ABSENT: JVD Respiratory exam: ABSENT: rales, rhonchi, wheezes Cardiovascular exam: PRESENT: RRR, +S1, +S2 Pulses: PRESENT: normal radial pulses, normal dorsalis pedis pul Vascular exam: PRESENT: normal capillary refill. ABSENT: pallor GI/Abdominal exam: PRESENT: normal bowel sounds, soft. ABSENT: rigid, tenderness Extremities exam: ABSENT: calf tenderness, joint swelling Musculoskeletal exam: PRESENT: full ROM, normal inspection Neurological exam: PRESENT: alert, oriented to person, oriented to place, oriented to time, oriented to situation Psychiatric exam: PRESENT: depressed. ABSENT: anxious Focused psych exam: ABSENT: delusional, paranoid Skin exam: PRESENT: normal color. ABSENT: mottled Results Laboratory Results: 08/15/17 08/15/17 08/15/17 17:10 17:10 23:40 Creatine Kinase 249 H 209 H CK-MB (CK-2) Troponin I < 0.012 08/15/17 08/16/17 08/16/17 23:40 05:30 05:30 Creatine Kinase 177 H CK-MB (CK-2) 0.80 0.63 Troponin I < 0.012 < 0.012 Impressions: Chest X-Ray 08/15/17 10:59 IMPRESSION: NO SIGNIFICANT RADIOGRAPHIC FINDING IN THE CHEST. Qualifiers - * PATIENT BEING DISCHARGED WITH ANY OF THE FOLLOWING DIAGNOSIS: No VTE patient discharged on overlapping Therapy?: No Plan Discharge Plan: f/u with PCP in 1 week. regular diet activity as tolerated Condition: good disposition: home Time Spent: Greater than 30 Minutes
--- NOTE | 2017-08-18 17:18 | DRAGON STRESS TEST REPORT ---
Intravenous Lexiscan Cardiolite stress test using single photon emmision computerized tomography. Date of procedure: 08/17/2017. Ordering Provider: Dr. Nick Souza. Patient's status: Up in Patient Indication: Chest pain. Coronary risk factors: Hypertension, and family history of coronary artery disease. Resting EKG: Sinus Rhythm. Within Normal Limits. Stress EKG: No changes of ischemia. The patient had no chest pain or discomfort, and there were no arrhythmias seen. Reason for termination: Protocol. Conclusions: Normal EKG and hemodynamic response to IV Lexiscan. Nuclear data: At rest the patient was given 15.36 millicuries of technetium 99m sestamibi injected intravenously. As per protocol rest non gated SPECT images were obtained. Subsequently the patient was given intravenous Lexiscan at a dose of 0.4 mg in 5 mL intravenously, followed by flush with normal saline. Subsequently the stress dose of 45.8 millicuries of technetium 99m sestamibi was injected intravenously. As per protocol stress gated images were obtained. Nuclear interpretation: Review of images showed that all segments of the myocardium had normal perfusion at rest, and normal perfusion post stress with IV Lexiscan. All segments of the myocardium had normal motion, contraction, and thickening by gated study. T. I D. ratio was normal at 1.04. Computer read rest, and stress left ventricular ejection fraction were 43 %, and 59 %, respectively. Visually both the stress and rest ejection fractions were normal, and greater than 55%. Conclusion: 1. There is no scintigraphic evidence of Lexiscan induced myocardial ischemia. 2. There is no scintigraphic evidence of myocardial infarction/scar. Recommendations: Aggressive risk factor modification, and treating the underlying co- morbidities. MTDD
== END 2017-08-17 15:45 | disposition home or self-care (01) ==
LOC: ER 10:40 → EH 13:03 → 4S 14:50
PROVIDERS: ADMIT Internal Medicine; ATTEND Internal Medicine
DX: I20.0 Unstable angina (principal); G80.9 Cerebral palsy, unspecified; I10 Essential (primary) hypertension; F32.9 Major depressive disorder, single episode, unspecified; R11.0 Nausea; F41.9 Anxiety disorder, unspecified; R20.0 Anesthesia of skin; R20.2 Paresthesia of skin; Z79.899 Other long term (current) drug therapy; Z63.4 Disappearance and death of family member; Z82.49 Family history of ischemic heart disease and other diseases of the circulatory system; Z98.890 Other specified postprocedural states; Z32.02 Encounter for pregnancy test, result negative
CPT/HCPCS: 93005; 99285; 36415 ×2; 82553 ×2; 82550 ×2; 84702; 84443 ×2; 85025; 80053; 81001; 84484 ×2; 80061; 93306; 93017; 71045; 78452; 93010; G0378 ×3; A9500; J2785; J3490 ×10; J2270 ×2; J1650 ×2; J7030; Q9969

== ENCOUNTER 2018-01-21 10:24 | Emergency (ER) | payer MEDICAID ==
[2018-01-21 10:49] VITALS: BP 161/98
[2018-01-21] MEDS ORDERED: IBUPROFEN 800 MG TABLET PO ONE (11:14)
[2018-01-21] MEDS ORDERED: ONDANSETRON 4 MG TAB.RAPDIS PO ONE (11:14)
--- NOTE | 2018-01-21 11:15 | ER Document Report ---
HPI - HPI Patient complains to provider of: cough Time Seen by Provider: 01/21/18 10:50 Onset: Last week Onset/Duration: Persistent Severity: Severe Pain Level: 4 Context: Patient presents emergency department with complaints of coughing up mucus feeling hot and having the chills for 1 week. She reports diarrhea x2 today vomiting once today. She reports her body is aching. Denies fever. Also complains of a pressure headache. Sore throat and decreased appetite. No complaints of pain with void. She reports symptoms for 1 week. Denies other family members ill. Did not receive flu vaccine this year. Did not take any Tylenol or antipyretic today. Patient is a [id number] mom. Associated Symptoms: Body/muscle aches, Productive cough, Diarrhea, Nausea, Vomiting Exacerbated by: Denies Relieved by: Denies Similar symptoms previously: No Recently seen / treated by doctor: No - REPRODUCTIVE Reproductive: DENIES: : Past Medical History - General Information source: Patient Last Menstrual Period: 01/15/18 - Social History Smoking Status: Unknown if Ever Smoked Frequency of alcohol use: Occasional Drug Abuse: None Occupation: Unemployed Lives with: Family Family History: Reviewed & Not Pertinent Patient has suicidal ideation: No Patient has homicidal ideation: No - Past Medical History Cardiac Medical History: Reports: Hx Hypertension Denies: Hx Coronary Artery Disease, Hx Heart Attack, Hx Pulmonary Embolism, Hx Heart Murmur Pulmonary Medical History: Denies: Hx Asthma, Hx Bronchitis, Hx COPD, Hx Pneumonia, Hx Sleep Apnea - not current, Hx Tuberculosis Neurological Medical History: Denies: Hx Cerebrovascular Accident, Hx Seizures Endocrine Medical History: Renal/ Medical History: Reports: Hx Ovarian Cysts. Denies: Hx Peritoneal Dialysis GI Medical History: Reports: Hx Gastroesophageal Reflux Disease - with . Denies: Hx Hepatitis, Hx Hiatal Hernia, Hx Ulcer Musculoskeletal Medical History: Denies Hx Arthritis, Denies Hx Fibromyalgia Psychiatric Medical History: Reports: Hx Depression Traumatic Medical History: Denies: Hx Fractures Infectious Medical History: Denies: Hx Hepatitis, Hx HIV Past Surgical History: Reports: Hx Cardiac Surgery - x 3, Hx Section - x3, Hx Tonsillectomy. Denies: Hx Hysterectomy, Hx Mastectomy, Hx Open Heart Surgery, Hx Pacemaker - Immunizations Hx Diphtheria, Pertussis, Tetanus Vaccination: Yes Vertical Provider Document - CONSTITUTIONAL Agree With Documented VS: Yes Exam Limitations: No Limitations General Appearance: WD/WN, No Apparent Distress - INFECTION CONTROL TRAVEL OUTSIDE OF THE [place] IN LAST 30 DAYS: No - HEENT HEENT: Atraumatic, Normocephalic. negative: Conjuctival Injection, Pharyngeal Exudate, Pharyngeal Tenderness, Pharyngeal Erythema, Tympanic Membrane Red, Tympanic Membrane Bulging - NECK Neck: Normal Inspection, Supple - RESPIRATORY Respiratory: Breath Sounds Normal, No Respiratory Distress - CARDIOVASCULAR Cardiovascular: Regular Rate, Regular Rhythm - GI/ABDOMEN Gastrointestinal: Abdomen Non-Tender - MUSCULOSKELETAL/EXTREMETIES Musculoskeletal/Extremeties: MAJOY FROM - NEURO Level of Consciousness: Awake, Alert, Appropriate Motor/Sensory: No Motor Deficit - DERM Integumentary: Warm, Dry, No Rash Course - Re-evaluation Re-evalutation: 01/21/18 X-ray negative for pneumonia flu negative. Patient was instructed on the importance of pushing fluids, good handwashing. Patient was also instructed if her cough gets worse started having fever to return to the ED. Patient looks like she does not feel good but does not look toxic. Patient verbalized understanding to all instructions. Dictation of this chart was performed using voice recognition software; therefore, there may be some unintended grammatical errors. - Vital Signs Vital signs: Temp Pulse Resp BP Pulse Ox 98.3 F 92 18 161/98 H 100 01/21/18 10:46 01/21/18 10:46 01/21/18 10:46 01/21/18 10:46 01/21/18 10:46 - Diagnostic Test Radiology reviewed: Image reviewed, Reports reviewed - EXAM DESCRIPTION: CHEST 2 VIEWS COMPLETED DATE/TIME: 01/21/2018 11:10 am REASON FOR STUDY: cough fever COMPARISON: 08/13/2016 EXAM PARAMETERS: NUMBER OF VIEWS: two views TECHNIQUE: Digital Frontal and Lateral radiographic views of the chest acquired. RADIATION DOSE: NA LIMITATIONS: none FINDINGS: LUNGS AND PLEURA: No opacities, masses or pneumothorax. No pleural effusion. MEDIASTINUM AND HILAR STRUCTURES: No masses or contour abnormalities. HEART AND VASCULAR STRUCTURES: Heart normal size. No evidence for failure. BONES: No acute findings. HARDWARE: None in the chest. OTHER: No other significant finding. IMPRESSION: NO ACUTE RADIOGRAPHIC FINDING IN THE CHEST. Discharge - Discharge Clinical Impression: Flu-like symptoms, Cough Condition: Stable Disposition: HOME, SELF-CARE Instructions: Acetaminophen Additional Instructions: *You have been evaluated for flu like symptoms today, cough, chills, body aches *Your flu test was negative your chest x-ray did not show pneumonia *Increase fluid intake , good handwashing *Monitor your temperature, take Tylenol as indicated *Follow up with a primary care provider within one week *Return to ED for worsening condition, changes, needs, increased cough, difficulty breathing, concerns Referrals: SOPHY MAYFIELD MD [ACTIVE STAFF] - Follow up in 3-5 days
--- NOTE | 2018-01-21 11:27 | RADIOLOGY REPORT (SQ) ---
EXAM DESCRIPTION: CHEST 2 VIEWS COMPLETED DATE/TIME: 01/21/2018 11:10 am REASON FOR STUDY: cough fever COMPARISON: 08/13/2016 EXAM PARAMETERS: NUMBER OF VIEWS: two views TECHNIQUE: Digital Frontal and Lateral radiographic views of the chest acquired. RADIATION DOSE: NA LIMITATIONS: none FINDINGS: LUNGS AND PLEURA: No opacities, masses or pneumothorax. No pleural effusion. MEDIASTINUM AND HILAR STRUCTURES: No masses or contour abnormalities. HEART AND VASCULAR STRUCTURES: Heart normal size. No evidence for failure. BONES: No acute findings. HARDWARE: None in the chest. OTHER: No other significant finding. IMPRESSION: NO ACUTE RADIOGRAPHIC FINDING IN THE CHEST. TECHNICAL DOCUMENTATION: JOB ID: [id number] [email or web address] All Rights Reserved Reading location - IP/workstation name: [email or web address]
[2018-01-21 11:29] LABS: A TYPE INFLUENZA AG NEGATIVE (NEGATIVE); B INFLUENZA AG NEGATIVE (NEGATIVE)
== END 2018-01-21 12:15 | disposition home or self-care (01) ==
LOC: ER 10:24
DX: R05 Cough (principal); R68.83 Chills (without fever); R51 Headache; R63.0 Anorexia; J02.9 Acute pharyngitis, unspecified; M79.10 Myalgia, unspecified site; R19.7 Diarrhea, unspecified; R11.2 Nausea with vomiting, unspecified; I10 Essential (primary) hypertension
CPT/HCPCS: 99284; 87804; 71046; J3490; S0119

== ENCOUNTER 2018-10-26 14:21 | Emergency (ER) | payer MEDICAID ==
[2018-10-26 14:35] VITALS: BP 157/95
--- NOTE | 2018-10-26 15:58 | ER Document Report ---
HPI - HPI Time Seen by Provider: 10/26/18 15:38 Pain Level: 2 Context: Patient is a 33-year-old female presents to the emergency department with a chief complaint of urinary symptoms. Patient states she has had a urinary symptoms for about 1 week. Patient reports she has been using [id number] Azo which did help initially but over the past 24 hours she has had some lower abdominal discomfort, right lower back pain, and urinary frequency and urgency. Patient denies vaginal discharge. Patient states she has not had a fever but has reported chills. Patient denies flank pain. - REPRODUCTIVE Reproductive: DENIES: : Past Medical History - General Information source: Patient - Social History Smoking Status: Never Smoker Frequency of alcohol use: None Drug Abuse: None Lives with: Family Family History: Reviewed & Not Pertinent - Past Medical History Cardiac Medical History: Reports: Hx Hypertension Denies: Hx Coronary Artery Disease, Hx Heart Attack, Hx Pulmonary Embolism, Hx Heart Murmur Pulmonary Medical History: Reports: None Denies: Hx Asthma, Hx Bronchitis, Hx COPD, Hx Pneumonia, Hx Sleep Apnea - not current, Hx Tuberculosis EENT Medical History: Reports: None Neurological Medical History: Reports: None. Denies: Hx Cerebrovascular Accident, Hx Seizures Endocrine Medical History: Reports: None Renal/ Medical History: Reports: Hx Ovarian Cysts. Denies: Hx Peritoneal Dialysis Malignancy Medical History: Reports: None GI Medical History: Reports: Hx Gastroesophageal Reflux Disease - with . Denies: Hx Hepatitis, Hx Hiatal Hernia, Hx Ulcer Musculoskeletal Medical History: Reports None, Denies Hx Arthritis, Denies Hx Fibromyalgia Skin Medical History: Reports None Psychiatric Medical History: Reports: Hx Depression Traumatic Medical History: Reports: None. Denies: Hx Fractures Infectious Medical History: Reports: None. Denies: Hx Hepatitis, Hx HIV Past Surgical History: Reports: Hx Cardiac Surgery - x 3, Hx Section - x3, Hx Tonsillectomy. Denies: Hx Hysterectomy, Hx Mastectomy, Hx Open Heart Surgery, Hx Pacemaker - Immunizations Hx Diphtheria, Pertussis, Tetanus Vaccination: Yes Vertical Provider Document - CONSTITUTIONAL Agree With Documented VS: Yes Exam Limitations: No Limitations General Appearance: No Apparent Distress - INFECTION CONTROL TRAVEL OUTSIDE OF THE [place] IN LAST 30 DAYS: No - HEENT HEENT: Atraumatic, Normocephalic, PERRLA - RESPIRATORY Respiratory: Breath Sounds Normal, No Respiratory Distress - CARDIOVASCULAR Cardiovascular: Regular Rate, Regular Rhythm - GI/ABDOMEN Gastrointestinal: Abdomen Soft, Abdomen Non-Tender, Normal Bowel Sounds - BACK Notes: NO CVA TENDERNESS. - NEURO Level of Consciousness: Awake, Alert, Appropriate - DERM Integumentary: Warm, Dry, No Rash Course - Vital Signs Vital signs: Temp Pulse Resp BP Pulse Ox 98.0 F 84 20 157/95 H 99 10/26/18 14:33 10/26/18 14:33 10/26/18 14:33 10/26/18 14:33 10/26/18 14:33 Discharge - Discharge Clinical Impression: Dysuria Condition: Stable Disposition: HOME, SELF-CARE Additional Instructions: Continues emergency department for urinary symptoms. He did have a small amount of bacteria in your urine and since you are having symptoms I am going to go ahead and treat you with Keflex. Keflex is taken twice a day for the next 7 days. Use Tylenol or ibuprofen as needed for pain. Please return to the [facility] department if you continue to have symptoms, fever, worsening pain or any new symptoms. Urinary Tract Infection Your evaluation indicates that you have a urinary tract infection. This is due to germs growing in the bladder. This is a common problem. This infection usually responds quickly to antibiotics. Your antibiotic should be taken exactly as prescribed. Drink plenty of fluids -- three to four quarts a day. Occasionally, a bladder anesthetic will be prescribed to help stop the feeling of urgency until the antibiotic has a chance to clear the infection. This may cause your urine to be dark orange. Certain urine infections require a culture. If the doctor obtained a culture, the results will be back in two days. You should call to see if a change in treatment is needed. A repeat urinalysis after you finish treatment is often recommended. The physician will let you know if further testing is required. Call the doctor if you develop fever, chills, flank pain, inability to urinate, or blood in the urine. Prescriptions: Cephalexin Monohydrate [Keflex 500 mg Capsule] 500 mg PO BID 7 Days #14 capsule Referrals: LAUREL BULLARD, ABIOLA [Primary Care Provider] - Follow up as needed
[2018-10-26 15:59] LABS: APPEARANCE,URINE SLIGHTLY-CLOUDY; BILIRUBIN,URINE NEGATIVE (NEGATIVE); COLOR,URINE YELLOW; GLUCOSE, URINE NEGATIVE (NEGATIVE); KETONES,URINE NEGATIVE (NEGATIVE); LEUKOCYTE ESTERASE,URINE SMALL (NEGATIVE); NITRITE,URINE NEGATIVE (NEGATIVE); PROTEIN,URINE NEGATIVE (NEGATIVE); URINE SPECIFIC GRAVITY 1.021; UROBILINOGEN,URINE NEGATIVE mg/dL (<2.0)
[2018-10-26] MEDS ORDERED: CEPHALEXIN 500 MG CAPSULE PO ONE (16:14)
[2018-10-26] MEDS ORDERED: CEPHALEXIN 500 MG CAPSULE ONE (17:03)
== END 2018-10-26 17:07 | disposition home or self-care (01) ==
LOC: ER 14:21
DX: R30.0 Dysuria (principal); M54.5 Low back pain; R35.0 Frequency of micturition; R39.15 Urgency of urination; R68.83 Chills (without fever); I10 Essential (primary) hypertension
CPT/HCPCS: 81001; 81025; 87086; 87088; 99283

== ENCOUNTER → 2018-12-01 | Outpatient (CLI) | payer MEDICAID ==
[2018-12-01 19:42] LABS: BACTERIA (WET MOUNT) 4+ BACTERIA SEEN; EPITHELIALS (WET MOUNT) 4+ EPITHELIALS SEEN; T.VAGINALIS (WET MOUNT) NO TRICHOMONAS SEEN; WBCS (WET MOUNT) 1+ WBCS SEEN; YEAST (WET MOUNT) NO YEAST SEEN
[2018-12-01 21:25] LABS: CHLAM PCR NOT DETECTED (NOT DETECT)
== END ==
LOC: LAB 19:32
PROVIDERS: ATTEND Nurse Practitioner Acute Care
DX: N89.8 Other specified noninflammatory disorders of vagina (principal)
CPT/HCPCS: 87210; 87491; 87591

== ENCOUNTER 2019-05-03 16:54 | Emergency (ER) | payer MEDICAID ==
[2019-05-03] MEDS ORDERED: KETOROLAC TROMETHAMINE INJ/PF 30 MG/1 ML SDV IV ONE (19:05)
--- NOTE | 2019-05-03 19:07 | ER Document Report ---
ED Medical Screen (RME) - General Chief Complaint: Vaginal Bleeding Stated Complaint: ABDOMINAL PAIN,VAGINAL BLEEDING Time Seen by Provider: 05/03/19 18:58 Primary Care Provider: LAUREL BULLARD NP [Primary Care Provider] - Follow up as needed Notes: HPI: 34-year-old female with history of anemia and cerebral palsy presenting to the emergency department for evaluation of heavy vaginal bleeding. Some lightheadedness as well. States she has a history of heavy menstrual cycles. Most recently finished a 10-day menstrual cycle on April 23 and began having heavy vaginal bleeding again yesterday. Reports back pain and pelvic pain. No fever. Went to primary care office and was referred over to the emergency department for evaluation I have greeted and performed a rapid initial assessment of this patient. A comprehensive ED assessment and evaluation of the patient, analysis of test results and completion of the medical decision making process will be conducted by additional ED providers PHYSICAL EXAMINATION: GENERAL: Well-appearing, well-nourished and in mild acute distress. HEAD: Atraumatic, normocephalic. EYES: sclera anicteric, conjunctiva are normal. ENT: Moist mucous membranes. NECK: Normal range of motion LUNGS: Normal work of breathing, clear to auscultation HEART: 2+ radial pulses bilaterally, mild tachycardia ABD: limited by positioning for exam in triage. Mild tenderness across the pelvis on palpation : Deferred in triage EXTREMITIES: no pitting or edema. No cyanosis. NEUROLOGICAL: No focal neurological deficits. Moves all extremities spontaneously and on command. PSYCH: Normal mood, normal affect. SKIN: Warm, Dry, normal turgor, no rashes or lesions noted. TRAVEL OUTSIDE OF THE [place] IN LAST 30 DAYS: No - Related Data Allergies/Adverse Reactions: latex [Latex] Allergy (Severe, Verified 10/26/18 14:24) Rash, itchy Past Medical History - Social History Frequency of alcohol use: None Drug Abuse: None - Past Medical History Cardiac Medical History: Reports: Hx Hypertension Denies: Hx Coronary Artery Disease, Hx Heart Attack, Hx Pulmonary Embolism, Hx Heart Murmur Pulmonary Medical History: Denies: Hx Asthma, Hx Bronchitis, Hx COPD, Hx Pneumonia, Hx Sleep Apnea - not current, Hx Tuberculosis Neurological Medical History: Denies: Hx Cerebrovascular Accident, Hx Seizures Endocrine Medical History: Renal/ Medical History: Reports: Hx Ovarian Cysts. Denies: Hx Peritoneal Dialysis GI Medical History: Reports: Hx Gastroesophageal Reflux Disease - with pregna ncy. Denies: Hx Hepatitis, Hx Hiatal Hernia, Hx Ulcer Musculoskeltal Medical History: Denies Hx Arthritis, Denies Hx Fibromyalgia Psychiatric Medical History: Reports: Hx Depression Traumatic Medical History: Denies: Hx Fractures Infectious Medical History: Denies: Hx Hepatitis, Hx HIV Past Surgical History: Reports: Hx Cardiac Surgery - x 3, Hx Section - x3, Hx Tonsillectomy. Denies: Hx Hysterectomy, Hx Mastectomy, Hx Open Heart Surgery, Hx Pacemaker - Immunizations Hx Diphtheria, Pertussis, Tetanus Vaccination: Yes Physical Exam - Vital signs Vitals: Temp Pulse Resp BP Pulse Ox 98.4 F 110 H 20 159/103 H 100 05/03/19 17:31 05/03/19 17:31 05/03/19 17:31 05/03/19 17:31 05/03/19 17:31 Course - Vital Signs Vital signs: Temp Pulse Resp BP Pulse Ox 98.4 F 110 H 20 159/103 H 100 05/03/19 17:31 05/03/19 17:31 05/03/19 17:31 05/03/19 17:31 05/03/19 17:31 Doctor's Discharge - Discharge Referrals: LAUREL BULLARD NP [Primary Care Provider] - Follow up as needed
[2019-05-03 20:04] LABS: ABSOLUTE BASOPHILS # (AUTO) 0.1 10^3/uL (0.0-0.2); ABSOLUTE EOSINOPHILS # (AUTO) 0.1 10^3/uL (0.0-0.6); ABSOLUTE LYMPHOCYTES (AUTO) 1.9 10^3/uL (0.5-4.7); ABSOLUTE MONOCYTES (AUTO) 0.5 10^3/uL (0.1-1.4); ABSOLUTE NEUT (AUTO) 6.9 10^3/uL (1.7-8.2); BASOPHILS % (AUTO) 0.6 % (0-2); EOSINOPHILS % (AUTO) 1.4 % (0-6); HEMATOCRIT 26.6 % (36.0-47.0); HEMOGLOBIN 8.3 g/dL (12.0-15.5); LYMPHOCYTES % (AUTO) 19.7 % (13-45); MEAN CORPUSCULAR HEMOGLOBIN 19.1 pg (27.0-33.4); MONOCYTES % (AUTO) 5.1 % (3-13); PLATELET COUNT 329 10^3/uL (150-450); RED BLOOD COUNT 4.32 10^6/uL (3.72-5.28); RED CELL DISTRIBUTION WIDTH 19.4 % (11.5-14.0); SEGMENTED NEUTROPHILS % (AUTO) 73.2 % (42-78); TOTAL CELLS COUNTED % (AUTO) 100 %; WHITE BLOOD COUNT 9.4 10^3/uL (4.0-10.5)
[2019-05-03 20:20] LABS: ALBUMIN 4.4 g/dL (3.5-5.0); ALKALINE PHOSPHATASE 65 U/L (38-126); ANION GAP 10 (5-19); ASPARTATE AMINO TRANSFERASE 27 U/L (14-36); BILIRUBIN,DIRECT 0.2 mg/dL (0.0-0.4); BILIRUBIN,TOTAL 0.6 mg/dL (0.2-1.3); BLOOD UREA NITROGEN 9 mg/dL (7-20); CALCIUM 9.3 mg/dL (8.4-10.2); CARBON DIOXIDE 28 mmol/L (22-30); CHLORIDE 102 mmol/L (98-107); GLUCOSE 94 mg/dL (75-110); POTASSIUM 3.8 mmol/L (3.6-5.0); TOTAL PROTEIN 8.5 g/dL (6.3-8.2)
[2019-05-03 20:48] LABS: HYPOCHROMASIA 2+
[2019-05-03 20:49] LABS: ANISOCYTOSIS 2+; MEAN CORPUSCULAR VOLUME 62 fl (80-97); OVALOCYTES 2+; PLATELET COMMENT ADEQUATE; POIKILOCYTOSIS 2+; TEAR DROP CELLS SLIGHT
--- NOTE | 2019-05-03 21:19 | RADIOLOGY REPORT (SQ) ---
US PELVIS EXAM DATE: 05/03/2019 7:05 PM [facility]ER[facility] CARP[facility] HISTORY: Pelvic pain. COMPARISON: None. TECHNIQUE: Grayscale, color Doppler, and spectral Doppler ultrasound images of the pelvis were obtained. FINDINGS: The uterus is anteverted and measures 10.7 x 5.6 x 5.8 cm. There are multiple fibroids in the uterus, with the largest measuring 5 cm. The smaller fibroid measures 2.5 cm in the lower uterus. The endometrium is 9 mm in thickness. The cervix is 3.4 cm in length. Both ovaries are normal in size and contain normal follicles, with the right ovary measuring 3.6 cm and the left ovary measuring 3.1 cm. There is color Doppler blood flow in both ovaries. Mild pelvic free fluid. IMPRESSION: Fibroid uterus. Unremarkable ovaries.
[2019-05-04] MEDS ORDERED: KETOROLAC TROMETHAMINE INJ/PF 30 MG/1 ML SDV ONE (00:44)
[2019-05-04] MEDS ORDERED: KETOROLAC TROMETHAMINE 60 MG/2 ML SDV IM ONE (00:46)
[2019-05-04] MEDS ORDERED: MEDROXYPROGESTERONE ACET 10 MG TABLET PO ONE (02:25)
[2019-05-04 02:31] VITALS: BP 159/89
--- NOTE | 2019-05-04 02:31 | ER Document Report ---
ED GI/ - General Chief Complaint: Vaginal Bleeding Stated Complaint: ABDOMINAL PAIN,VAGINAL BLEEDING Time Seen by Provider: 05/03/19 18:58 Primary Care Provider: LESLIE DAMIAN MD [ACTIVE STAFF] - Follow up as needed Mode of Arrival: Ambulatory Information source: Patient Notes: RME HPI: 34-year-old female with history of anemia and cerebral palsy presenting to the emergency department for evaluation of heavy vaginal bleeding. Some lightheadedness as well. States she has a history of heavy menstrual cycles. Most recently finished a 10-day menstrual cycle on April 23 and began having heavy vaginal bleeding again yesterday. Reports back pain and pelvic pain. No fever. Went to primary care office and was referred over to the emergency department for evaluation TRAVEL OUTSIDE OF THE [place] IN LAST 30 DAYS: No - Related Data Allergies/Adverse Reactions: latex [Latex] Allergy (Severe, Verified 10/26/18 14:24) Rash, itchy Past Medical History - General Information source: Patient - Social History Smoking Status: Never Smoker Frequency of alcohol use: None Drug Abuse: None Family History: Reviewed & Not Pertinent Patient has suicidal ideation: No Patient has homicidal ideation: No - Past Medical History Cardiac Medical History: Reports: Hx Hypertension Denies: Hx Coronary Artery Disease, Hx Heart Attack, Hx Pulmonary Embolism, Hx Heart Murmur Pulmonary Medical History: Denies: Hx Asthma, Hx Bronchitis, Hx COPD, Hx Pneumonia, Hx Sleep Apnea - not current, Hx Tuberculosis Neurological Medical History: Denies: Hx Cerebrovascular Accident, Hx Seizures Endocrine Medical History: Renal/ Medical History: Reports: Hx Ovarian Cysts. Denies: Hx Peritoneal Dialysis GI Medical History: Reports: Hx Gastroesophageal Reflux Disease - with . Denies: Hx Hepatitis, Hx Hiatal Hernia, Hx Ulcer Musculoskeletal Medical History: Denies Hx Arthritis, Denies Hx Fibromyalgia Psychiatric Medical History: Reports: Hx Depression Traumatic Medical History: Denies: Hx Fractures Infectious Medical History: Denies: Hx Hepatitis, Hx HIV Past Surgical History: Reports: Hx Cardiac Surgery - x 3, Hx Section - x3, Hx Tonsillectomy. Denies: Hx Hysterectomy, Hx Mastectomy, Hx Open Heart Surgery, Hx Pacemaker - Immunizations Hx Diphtheria, Pertussis, Tetanus Vaccination: Yes Review of Systems - Review of Systems Constitutional: See HPI Female Genitourinary: See HPI -: Yes All other systems reviewed and negative Physical Exam - Vital signs Vitals: Temp Pulse Resp BP Pulse Ox 98.4 F 110 H 20 159/103 H 100 05/03/19 17:31 05/03/19 17:31 05/03/19 17:31 05/03/19 17:31 05/03/19 17:31 - Notes Notes: PHYSICAL EXAMINATION: GENERAL: Well-appearing, well-nourished and in no acute distress. HEAD: Atraumatic, normocephalic. EYES: Pupils equal round and reactive to light, extraocular movements intact, conjunctiva are normal. ENT: Nares patent, oropharynx clear without exudates. Moist mucous membranes. NECK: Normal range of motion, supple without lymphadenopathy LUNGS: Breath sounds clear to auscultation bilaterally and equal. No wheezes rales or rhonchi. HEART: Regular rate and rhythm without murmurs ABDOMEN: Soft, nontender, nondistended abdomen. No guarding, no rebound. No masses appreciated. Female : Normal external genitalia, dark red blood noted in the vaginal vault, no active bleeding noted. No cervical motion or adnexal tenderness. Musculoskeletal: Normal range of motion, no pitting or edema. No cyanosis. NEUROLOGICAL: Cranial nerves grossly intact. Normal speech, normal gait. Normal sensory, motor exams PSYCH: Normal mood, normal affect. SKIN: Warm, Dry, normal turgor, no rashes or lesions noted. Course - Re-evaluation Re-evalutation: Patient appears well, nontoxic, physical exam unremarkable. Patient is not having heavy vaginal bleeding at this time. Her hemoglobin is 8.3. She has not seen her TOUR LEADER for this problem. Will start patient on Provera 10 mg daily and h ave her follow-up with TOUR LEADER. ED return precautions were discussed extensively to include increased in bleeding, syncope or any other concerning symptoms. Patient verbalizes understanding and agreement with same. - Vital Signs Vital signs: Temp Pulse Resp BP Pulse Ox 97.8 F 93 20 159/89 H 100 05/04/19 00:51 05/04/19 00:51 05/04/19 00:51 05/04/19 02:30 05/04/19 00:51 - Laboratory Result Diagrams: 05/03/19 19:30 05/03/19 19:30 Laboratory results interpreted by me: 05/03/19 05/03/19 19:30 19:30 Hgb 8.3 L Hct 26.6 L MCV 62 L MCH 19.1 L MCHC 31.0 L RDW 19.4 H Total Protein 8.5 H Discharge - Discharge Clinical Impression: Abnormal vaginal bleeding Condition: Stable Disposition: HOME, SELF-CARE Additional Instructions: You were seen today for dysfunctional uterine bleeding. This is when you have vaginal bleeding and abdominal cramping off of your normal menstrual cycle. You have been started on Provera to help regulate your cycle and control your symptoms. You need to follow-up with [facility] AG[facility] or your primary care physician the next 1-3 days. Take the Toradol as prescribed, do not take ibuprofen while taking the Toradol. Return immediately if you worsening pain, you began bleeding through more than 2 pads per hour for more than 3 hours, you pass out, have persistent vomiting, develop a fever greater than 100.4F, or any other symptoms that are concerning to you. Prescriptions: Ketorolac Tromethamine [Toradol 10 mg Tablet] 10 mg PO Q6HP PRN #20 tablet PRN Reason: Medroxyprogesterone Acet [Provera 10 Mg Tablet] 10 mg PO DAILY #10 tablet Forms: Return to Work Referrals: LESLIE DAMIAN MD [ACTIVE STAFF] - Follow up as needed
[2019-05-04 11:06] LABS: PATH REVIEW PATHOLOGIST REVIEWED
== END 2019-05-04 02:35 | disposition home or self-care (01) ==
LOC: ER 16:54
DX: N93.9 Abnormal uterine and vaginal bleeding, unspecified (principal); M54.9 Dorsalgia, unspecified; R10.2 Pelvic and perineal pain; I10 Essential (primary) hypertension
CPT/HCPCS: 99284; 96372; 86900; 86901; 36415; 86850; 84703; 85025; 80053; 76830; 93976; J1885; J3490

== ENCOUNTER 2019-05-05 12:32 | Emergency (ER) | payer MEDICAID ==
--- NOTE | 2019-05-05 13:25 | ER Document Report ---
ED Medical Screen (RME) - General Chief Complaint: Abnormal Lab Results Stated Complaint: ABNORMAL LABS Time Seen by Provider: 05/05/19 13:19 Primary Care Provider: CORDELL DURAND,JORGE [Primary Care Provider] - Follow up as needed Notes: HPI: 34-year-old female presenting for evaluation of possible blood transfusion. Patient was seen 2 days ago for vaginal bleeding and anemia. Patient states that she was not given a blood transfusion 2 days ago but has continued to have some dizziness with standing, shortness of breath with exertional activities. Went back to her primary care provider who she states was adamant that the patient needed to come back to the emergency department to have a blood transfusion. States that the vaginal bleeding which was coming from her fibroids has improved I have greeted and performed a rapid initial assessment of this patient. A comprehensive ED assessment and evaluation of the patient, analysis of test results and completion of the medical decision making process will be conducted by additional ED providers PHYSICAL EXAMINATION: GENERAL: Well-appearing, well-nourished and in no acute distress. HEAD: Atraumatic, normocephalic. EYES: sclera anicteric, conjunctiva are normal. ENT: Moist mucous membranes. NECK: Normal range of motion LUNGS: Normal work of breathing, clear to auscultation HEART: 2+ radial pulses bilaterally, mild tachycardia ABD: limited by positioning for exam in triage. Mild tenderness across the pelvis on palpation EXTREMITIES: no pitting or edema. No cyanosis. NEUROLOGICAL: No focal neurological deficits. Moves all extremities spon taneously and on command. PSYCH: Normal mood, normal affect. SKIN: Warm, Dry, normal turgor, no rashes or lesions noted. TRAVEL OUTSIDE OF THE [place] IN LAST 30 DAYS: No - Related Data Allergies/Adverse Reactions: latex [Latex] Allergy (Severe, Verified 10/26/18 14:24) Rash, itchy Past Medical History - Social History Chew tobacco use (# tins/day): No Frequency of alcohol use: None Drug Abuse: None - Past Medical History Cardiac Medical History: Reports: Hx Hypertension Denies: Hx Coronary Artery Disease, Hx Heart Attack, Hx Pulmonary Embolism, Hx Heart Murmur Pulmonary Medical History: Denies: Hx Asthma, Hx Bronchitis, Hx COPD, Hx Pneumonia, Hx Sleep Apnea - not current, Hx Tuberculosis Neurological Medical History: Denies: Hx Cerebrovascular Accident, Hx Seizures Endocrine Medical History: Renal/ Medical History: Reports: Hx Ovarian Cysts. Denies: Hx Peritoneal Dialysis GI Medical History: Reports: Hx Gastroesophageal Reflux Disease - with . Denies: Hx Hepatitis, Hx Hiatal Hernia, Hx Ulcer Musculoskeltal Medical History: Denies Hx Arthritis, Denies Hx Fibromyalgia Psychiatric Medical History: Reports: Hx Depression Traumatic Medical History: Denies: Hx Fractures Infectious Medical History: Denies: Hx Hepatitis, Hx HIV Past Surgical History: Reports: Hx Cardiac Surgery - x 3, Hx Section - x3, Hx Tonsillectomy. Denies: Hx Hysterectomy, Hx Mastectomy, Hx Open Heart Surgery, Hx Pacemaker - Immunizations Hx Diphtheria, Pertussis, Tetanus Vaccination: Yes Physical Exam - Vital signs Vitals: Temp Pulse Resp BP Pulse Ox 98.1 F 110 H 18 159/82 H 100 05/05/19 12:35 05/05/19 12:35 05/05/19 12:35 05/05/19 12:35 05/05/19 12:35 Course - Vital Signs Vital signs: Temp Pulse Resp BP Pulse Ox 98.1 F 110 H 18 159/82 H 100 05/05/19 12:35 05/05/19 12:35 05/05/19 12:35 05/05/19 12:35 05/05/19 12:35 Doctor's Discharge - Discharge Referrals: [facility] [Primary Care Provider] - Follow up as needed
--- NOTE | 2019-05-05 17:25 | ER Document Report ---
ED General - General Chief Complaint: Abnormal Lab Results Stated Complaint: ABNORMAL LABS Time Seen by Provider: 05/05/19 13:19 Primary Care Provider: [facility] [NO LOCAL MD] - Follow up as needed Mode of Arrival: Ambulatory Information source: Patient TRAVEL OUTSIDE OF THE [place] IN LAST 30 DAYS: No - HPI Onset: Other - over the last several days Onset/Duration: Gradual Quality of pain: Cramping Severity: Mild Pain Level: 1 Associated symptoms: Other - vaginal bleeding, weakness Exacerbated by: Denies Relieved by: Denies Similar symptoms previously: Yes - patient has been having heavy and abdnormal periods for some time now Recently seen / treated by doctor: Yes - patient seen in the ER 2 days ago and had a hemoglobin of 8.3 then Notes: 34 year old female with a history of Uterine Fibroids, Abnormal Periods, Ovarian Cysts, Hypertension here for generalized weakness, dyspnea with exertion, pelvic pains and dizziness in the setting of continued vaginal bleeding. The patient was seen in this ER 2 days ago for the same and her hemoglobin then was 8.3. The patient was DCed on Provera and Toradol. The patient says her bleeding has slowed (only going through about a pad a day) but she is still feeling light headed. The patient has an outpatient SALES AND MARKETING ASSISTANT appointment scheduled for mid May. The patient denies fevers, chills, sweats, cough, congestion, chest pain. The patient says she was called today by her PCPs office and told her Hemoglobin was in the 7s and she needed a blood transfusion. - Related Data Allergies/Adverse Reactions: latex [Latex] Allergy (Severe, Verified 10/26/18 14:24) Rash, itchy Past Medical History - General Information source: Patient - Social History Smoking Status: Never Smoker Chew tobacco use (# tins/day): No Frequency of alcohol use: None Drug Abuse: None Lives with: Family Family History: Reviewed & Not Pertinent Patient has suicidal ideation: No Patient has homicidal ideation: No - Past Medical History Cardiac Medical History: Reports: Hx Hypertension Denies: Hx Coronary Artery Disease, Hx Heart Attack, Hx Pulmonary Embolism, Hx Heart Murmur Pulmonary Medical History: Denies: Hx Asthma, Hx Bronchitis, Hx COPD, Hx Pneumonia, Hx Sleep Apnea - not current, Hx Tuberculosis Neurological Medical History: Denies: Hx Cerebrovascular Accident, Hx Seizures Endocrine Medical History: Renal/ Medical History: Reports: Hx Ovarian Cysts. Denies: Hx Peritoneal Dialysis GI Medical History: Reports: Hx Gastroesophageal Reflux Disease - with preg mayank. Denies: Hx Hepatitis, Hx Hiatal Hernia, Hx Ulcer Musculoskeletal Medical History: Denies Hx Arthritis, Denies Hx Fibromyalgia Psychiatric Medical History: Reports: Hx Depression Traumatic Medical History: Denies: Hx Fractures Infectious Medical History: Denies: Hx Hepatitis, Hx HIV Past Surgical History: Reports: Hx Cardiac Surgery - x 3, Hx Section - x3, Hx Tonsillectomy. Denies: Hx Hysterectomy, Hx Mastectomy, Hx Open Heart Surgery, Hx Pacemaker - Immunizations Hx Diphtheria, Pertussis, Tetanus Vaccination: Yes Review of Systems - Review of Systems Constitutional: Weakness EENT: No symptoms reported Cardiovascular: Dizziness, Lightheaded Respiratory: No symptoms reported Gastrointestinal: No symptoms reported Genitourinary: No symptoms reported Female Genitourinary: Vaginal bleeding Musculoskeletal: No symptoms reported Skin: No symptoms reported Hematologic/Lymphatic: No symptoms reported Neurological/Psychological: No symptoms reported -: Yes All other systems reviewed and negative Physical Exam - Vital signs Vitals: Temp Pulse Resp BP Pulse Ox 98.1 F 110 H 18 159/82 H 100 05/05/19 12:35 05/05/19 12:35 05/05/19 12:35 05/05/19 12:35 05/05/19 12:35 - Notes Notes: GENERAL: Well-appearing, well-nourished and in no acute distress. HEAD: Atraumatic, normocephalic. EYES: Pupils equal round and reactive to light, extraocular movements intact, sclera anicteric, conjunctiva are normal. ENT: TMs normal, nares patent, oropharynx clear without exudates. Moist mucous membranes. NECK: Normal range of motion, supple without lymphadenopathy or JVD. LUNGS: Breath sounds clear to auscultation bilaterally and equal. No wheezes rales or rhonchi. HEART: Regular rate and rhythm without murmurs, rubs or gallops. ABDOMEN: Soft, nontender, normoactive bowel sounds. No guarding, no rebound. No masses appreciated. EXTREMITIES: Normal range of motion, no pitting or edema. No clubbing or cyanosis. NEUROLOGICAL: Cranial nerves II through XII grossly intact. Normal speech, normal gait. PSYCH: Normal mood, normal affect. SKIN: Warm, Dry, normal turgor, no rashes or lesions noted. Course - Re-evaluation Re-evalutation: 05/05/19 19:30 The patient's hemoglobin is 8.2 today and it was 8.3 2 days ago. The patient says her PCPs office checked her hemoglobin and found it to be in the 7s which seems like that was a lab error. The patient does not need a blood transfusion. Patient is safe for outpatient follow up with SALES AND MARKETING ASSISTANT. Patient told to continue taking the previously prescribed Provera. - Vital Signs Vital signs: Temp Pulse Resp BP Pulse Ox 98.1 F 110 H 18 159/82 H 100 05/05/19 12:35 05/05/19 12:35 05/05/19 12:35 05/05/19 12:35 05/05/19 12:35 - Laboratory Result Diagrams: 05/05/19 17:28 05/05/19 18:31 Laboratory results interpreted by me: 05/05/19 05/05/19 17:28 18:31 Hgb 8.2 L Hct 26.5 L MCV 62 L MCH 19.0 L MCHC 30.7 L RDW 18.9 H AST 39 H Discharge - Discharge Clinical Impression: Vaginal bleeding Anemia Qualifiers: Anemia type: unspecified type Qualified Code(s): D64.9 - Anemia, unspecified Condition: Stable Disposition: HOME, SELF-CARE Instructions: Anemia ([facility]), Vaginal Bleeding ([facility]) Additional Instructions: Finish your previously prescribed Provera. Follow up with an SALES AND MARKETING ASSISTANT Doctor as soon as possible for your vaginal bleeding and uterine fibroids. Your hemoglobin was 8.3 two days ago and it is 8.2 today. This is what your hemoglobin has been for years. Drink plenty of fluids in the days to come. Use Tylenol and the previously prescribed Toradol for pain. Referrals: [facility] [NO LOCAL MD] - Follow up as needed
[2019-05-05 18:03] LABS: ABSOLUTE EOSINOPHILS # (AUTO) 0.1 10^3/uL (0.0-0.6); ABSOLUTE LYMPHOCYTES (AUTO) 1.6 10^3/uL (0.5-4.7); ABSOLUTE MONOCYTES (AUTO) 0.3 10^3/uL (0.1-1.4); ABSOLUTE NEUT (AUTO) 6.3 10^3/uL (1.7-8.2); BASOPHILS % (AUTO) 0.5 % (0-2); EOSINOPHILS % (AUTO) 1.7 % (0-6); HEMATOCRIT 26.5 % (36.0-47.0); HEMOGLOBIN 8.2 g/dL (12.0-15.5); LYMPHOCYTES % (AUTO) 19.2 % (13-45); MEAN CORPUSCULAR HGB CONC 30.7 g/dL (32.0-36.0); MEAN CORPUSCULAR VOLUME 62 fl (80-97); MONOCYTES % (AUTO) 3.9 % (3-13); PLATELET COUNT 317 10^3/uL (150-450); RED BLOOD COUNT 4.29 10^6/uL (3.72-5.28); RED CELL DISTRIBUTION WIDTH 18.9 % (11.5-14.0); SEGMENTED NEUTROPHILS % (AUTO) 74.7 % (42-78); TOTAL CELLS COUNTED % (AUTO) 100 %; WHITE BLOOD COUNT 8.4 10^3/uL (4.0-10.5)
[2019-05-05 18:07] LABS: INTERNATIONAL RATION (INR) 1.07; PROTHROMBIN TIME 13.9 SEC (11.4-15.4)
[2019-05-05 18:25] LABS: ANISOCYTOSIS 2+; HYPOCHROMASIA 1+; POIKILOCYTOSIS 2+
[2019-05-05 18:26] LABS: OVALOCYTES 1+; SCHISTOCYTES SLIGHT; TEAR DROP CELLS SLIGHT
[2019-05-05 18:27] LABS: PLATELET COMMENT ADEQUATE
[2019-05-05 19:03] LABS: ALBUMIN 4.1 g/dL (3.5-5.0); ALKALINE PHOSPHATASE 55 U/L (38-126); ANION GAP 6 (5-19); ASPARTATE AMINO TRANSFERASE 39 U/L (14-36); BILIRUBIN,TOTAL 0.6 mg/dL (0.2-1.3); BLOOD UREA NITROGEN 10 mg/dL (7-20); CALCIUM 9.1 mg/dL (8.4-10.2); CARBON DIOXIDE 28 mmol/L (22-30); CHLORIDE 103 mmol/L (98-107); GLUCOSE 83 mg/dL (75-110); POTASSIUM 4.3 mmol/L (3.6-5.0); TOTAL PROTEIN 7.8 g/dL (6.3-8.2)
[2019-05-05 20:45] VITALS: BP 178/91
== END 2019-05-05 20:46 | disposition home or self-care (01) ==
LOC: ER 12:32
DX: N93.8 Other specified abnormal uterine and vaginal bleeding (principal); D64.9 Anemia, unspecified; R53.1 Weakness; R42 Dizziness and giddiness; R10.2 Pelvic and perineal pain; I10 Essential (primary) hypertension; Z91.040 Latex allergy status
CPT/HCPCS: 36415; 80053; 85025; 85610; 86850; 86900; 86901; 99283

== ENCOUNTER → 2019-05-12 | Outpatient (CLI) | payer MEDICAID ==
--- NOTE | 2019-05-12 12:24 | RADIOLOGY REPORT (SQ) ---
EXAM DESCRIPTION: FOOT LEFT COMPLETE; FOOT RIGHT COMPLETE COMPLETED DATE/TIME: 05/12/2019 11:51 am; 05/12/2019 11:52 am REASON FOR STUDY: UNSP FRACTURE OF LEFT FOOT, INIT ENCNTR FOR CLOSED FRACTURE; UNSP FRACTURE OF RIGH T FOOT, INIT ENCNTR FOR CLOSED FRACTURE COMPARISON: None. FINDINGS: Three views right foot, weight-bearing: Mild pes planus. Otherwise no bone, joint or sof t tissue abnormality. Three views left foot, weight-bearing: Pes planus. Otherwise no bone, joint or soft tissue abnormal ity. TECHNICAL DOCUMENTATION: JOB ID: [id number] Reading location - IP/workstation name: [email or web address]
--- NOTE | 2019-05-12 12:24 | RADIOLOGY REPORT (SQ) ---
EXAM DESCRIPTION: FOOT LEFT COMPLETE; FOOT RIGHT COMPLETE COMPLETED DATE/TIME: 05/12/2019 11:51 am; 05/12/2019 11:52 am REASON FOR STUDY: UNSP FRACTURE OF LEFT FOOT, INIT ENCNTR FOR CLOSED FRACTURE; UNSP FRACTURE OF RIGH T FOOT, INIT ENCNTR FOR CLOSED FRACTURE COMPARISON: None. FINDINGS: Three views right foot, weight-bearing: Mild pes planus. Otherwise no bone, joint or sof t tissue abnormality. Three views left foot, weight-bearing: Pes planus. Otherwise no bone, joint or soft tissue abnormal ity. TECHNICAL DOCUMENTATION: JOB ID: [id number] Reading location - IP/workstation name: [email or web address]
== END ==
LOC: RAD 11:06
PROVIDERS: ATTEND Podiatrist Foot & Ankle Surgery
DX: S92.901A Unspecified fracture of right foot, initial encounter for closed fracture (principal); S92.902A Unspecified fracture of left foot, initial encounter for closed fracture; X58.XXXA Exposure to other specified factors, initial encounter; M21.42 Flat foot [pes planus] (acquired), left foot; M21.41 Flat foot [pes planus] (acquired), right foot

== ENCOUNTER 2019-09-11 14:54 | Emergency (ER) | payer MEDICAID ==
--- NOTE | 2019-09-11 15:51 | ER Document Report ---
ED Medical Screen (RME) - General Chief Complaint: Abdominal Pain Stated Complaint: URINARY ISSUES,SHORTNESS OF BREATH Time Seen by Provider: 09/11/19 15:45 Mode of Arrival: Wheelchair Information source: Patient Notes: 34-year-old female presents to ED for complaint of severe chest abdominal and pelvic pain. She states she had a laparoscopic hysterectomy on September 06 and was discharged at 4 PM on September 08. She states she was having the same pains when at the hospital in [place] but they discharged her home. She states during the surgery they stated that the bladder was stuck to the wall of the headache get the bladder lose before they could do the hysterectomy. She states she has not urinated since yesterday and she is having a lot of pain and pressure there. She states it was very painful to urinate until yesterday. She states every time she tries to take a breath she has severe chest pain. She states she called her surgeon in [place] and they told her to go to the nearest hospital to be checked out. I have greeted and performed a rapid initial assessment of this patient. A comprehensive ED assessment and evaluation of the patient, analysis of test results and completion of medical decision making process will be conducted by an additional ED providers. TRAVEL OUTSIDE OF THE [place] IN LAST 30 DAYS: No - Related Data Allergies/Adverse Reactions: latex [Latex] Allergy (Severe, Verified 10/26/18 14:24) Rash, itchy Past Medical History - Past Medical History Cardiac Medical History: Reports: Hx Hypertension Denies: Hx Coronary Artery Disease, Hx Heart Attack, Hx Pulmonary Embolism, Hx Heart Murmur Pulmonary Medical History: Denies: Hx Asthma, Hx Bronchitis, Hx COPD, Hx Pneumonia, Hx Sleep Apnea - not current, Hx Tuberculosis Neurological Medical History: Denies: Hx Cerebrovascular Accident, Hx Seizures Endocrine Medical History: Renal/ Medical History: Reports: Hx Ovarian Cysts. Denies: Hx Peritoneal Dialysis GI Medical History: Reports: Hx Gastroesophageal Reflux Disease - with . Denies: Hx Hepatitis, Hx Hiatal Hernia, Hx Ulcer Musculoskeltal Medical History: Denies Hx Arthritis, Denies Hx Fibromyalgia Psychiatric Medical History: Reports: Hx Depression Traumatic Medical History: Denies: Hx Fractures Infectious Medical History: Denies: Hx Hepatitis, Hx HIV Past Surgical History: Reports: Hx Cardiac Surgery - x 3, Hx Section - x3, Hx Tonsillectomy. Denies: Hx Hysterectomy, Hx Mastectomy, Hx Open Heart Surgery, Hx Pacemaker - Immunizations Hx Diphtheria, Pertussis, Tetanus Vaccination: Yes Physical Exam - Vital signs Vitals: Temp Pulse Resp BP Pulse Ox 98.8 F 116 H 20 166/93 H 99 09/11/19 15:02 09/11/19 15:02 09/11/19 15:02 09/11/19 15:02 09/11/19 15:02 Course - Vital Signs Vital signs: Temp Pulse Resp BP Pulse Ox 98.8 F 116 H 20 166/93 H 99 09/11/19 15:02 09/11/19 15:02 09/11/19 15:02 09/11/19 15:02 09/11/19 15:02
[2019-09-11 16:20] LABS: ABSOLUTE BASOPHILS # (AUTO) 0.1 10^3/uL (0.0-0.2); ABSOLUTE EOSINOPHILS # (AUTO) 0.3 10^3/uL (0.0-0.6); ABSOLUTE MONOCYTES (AUTO) 0.5 10^3/uL (0.1-1.4); ABSOLUTE NEUT (AUTO) 8.7 10^3/uL (1.7-8.2); BASOPHILS % (AUTO) 0.6 % (0-2); EOSINOPHILS % (AUTO) 2.9 % (0-6); HEMOGLOBIN 9.2 g/dL (12.0-15.5); LYMPHOCYTES % (AUTO) 9.3 % (13-45); MEAN CORPUSCULAR HEMOGLOBIN 21.7 pg (27.0-33.4); MEAN CORPUSCULAR HGB CONC 31.7 g/dL (32.0-36.0); MEAN CORPUSCULAR VOLUME 68 fl (80-97); MONOCYTES % (AUTO) 4.9 % (3-13); PLATELET COUNT 281 10^3/uL (150-450); RED BLOOD COUNT 4.25 10^6/uL (3.72-5.28); RED CELL DISTRIBUTION WIDTH 31.8 % (11.5-14.0); SEGMENTED NEUTROPHILS % (AUTO) 82.3 % (42-78); TOTAL CELLS COUNTED % (AUTO) 100 %; WHITE BLOOD COUNT 10.6 10^3/uL (4.0-10.5)
[2019-09-11 16:33] LABS: ALKALINE PHOSPHATASE 60 U/L (38-126); ANION GAP 8 (5-19); ASPARTATE AMINO TRANSFERASE 21 U/L (14-36); BILIRUBIN,TOTAL 0.3 mg/dL (0.2-1.3); BLOOD UREA NITROGEN 25 mg/dL (7-20); CALCIUM 8.8 mg/dL (8.4-10.2); CARBON DIOXIDE 26 mmol/L (22-30); CHLORIDE 102 mmol/L (98-107); GLUCOSE 97 mg/dL (75-110); POTASSIUM 4.1 mmol/L (3.6-5.0); TOTAL PROTEIN 7.3 g/dL (6.3-8.2)
[2019-09-11 16:51] LABS: ANISOCYTOSIS 4+; HYPOCHROMASIA SLIGHT; OVALOCYTES SLIGHT; PLATELET COMMENT ADEQUATE; PLATELET LARGE PRESENT; POIKILOCYTOSIS SLIGHT; POLYCHROMASIA SLIGHT; SCHISTOCYTES SLIGHT
[2019-09-11] MEDS ORDERED: MORPHINE SULFATE 10 MG/ML INJ IV ONE ×4 (17:04→21:54)
[2019-09-11] MEDS ORDERED: ONDANSETRON HCL INJ/PF 4 MG/2 ML SDV IV ONE (17:04)
[2019-09-11] MEDS ORDERED: LIDOCAINE 2% URO-JET 5 ML KIT MM ONE (17:04)
--- NOTE | 2019-09-11 17:20 | RADIOLOGY REPORT (SQ) ---
EXAM DESCRIPTION: CTA CHEST IMAGES COMPLETED DATE/TIME: 09/11/2019 4:45 pm REASON FOR STUDY: Postop abdominal and chest pain COMPARISON: 02/22/2016 TECHNIQUE: CT scan of the chest performed using helical scanning technique with dynamic intravenous contrast injection. Images reviewed with lung, soft tissue and bone windows. Reconstructed coronal and sagittal MPR images reviewed. Additional 3 dimensional post-processing performed to develop Maximal Intensity Projection images (AK P). All images stored on PACS. All CT scanners at this facility use dose modulation, iterative reconstruction, and/or weight based d osing when appropriate to reduce radiation dose to as low as reasonably achievable (ALARA). [facility]: Dose Right [facility]: CareDose [facility]: Dose Right [facility]: Teradose 4D [facility]: FOLUP CONTRAST TYPE AND DOSE: contrast/concentration: Isovue 350.00 mmol/ml; Total Contrast Delivered: 100 .0 ml; Total Saline Delivered: 50.2 ml Contrast bolus adequate for pulmonary arteries and aorta. RENAL FUNCTION: 02/22/2016 RADIATION DOSE: CT Rad equipment meets quality standard of care and radiation dose reduction techniq ues were employed. CTDIvol: 19.8 - 31.3 mGy. DLP: 4192 mGy-cm. . LIMITATIONS: None. FINDINGS: LUNGS AND PLEURA: Atelectatic changes in both lung bases. AORTA AND GREAT VESSELS: No aneurysm. Contrast bolus not optimized for the aorta. HEART: No pericardial effusion. No significant coronary artery calcifications. PULMONARY ARTERIES: No emboli visualized in the main pulmonary arteries or the segmental branches. HILAR AND MEDIASTINAL STRUCTURES: No identified masses or abnormal nodes. HARDWARE: None in the chest. UPPER ABDOMEN: See separate report of the CT of the abdomen. THYROID AND OTHER SOFT TISSUES: No masses. No adenopathy. BONES: No significant or acute findings. 3D MIPS: Confirm above findings. OTHER: No other significant finding. IMPRESSION: No pulmonary embolus. No aortic aneurysm or dissection. Airspace disease in the lower lobes likely atelectasis. COMMENT: Quality ID # [id number]: Final reports with documentation of one or more dose reduction techniques (e.g., Automated exposure control, adjustment of the mA and/or kV according to patient size, use of iterative reconstruction technique) TECHNICAL DOCUMENTATION: JOB ID: [id number] 2010 [employer]- All Rights Reserved Reading location - IP/workstation name: [email or web address]
--- NOTE | 2019-09-11 17:32 | RADIOLOGY REPORT (SQ) ---
EXAM DESCRIPTION: CT ABD/PELVIS WITH IV ONLY IMAGES COMPLETED DATE/TIME: 09/11/2019 4:45 pm REASON FOR STUDY: Postop abdominal and chest pain COMPARISON: None. TECHNIQUE: CT scan of the abdomen and pelvis performed using helical scanning technique with dynamic intravenous contrast injection. No oral contrast. Images reviewed with lung, soft tissue, and bone windows. Reconstructed coronal and sagittal MPR images reviewed. Delayed images for evaluation of the urinary system also acquired. All images stored on PACS. All CT scanners at this facility use dose modulation, iterative reconstruction, and/or weight based d osing when appropriate to reduce radiation dose to as low as reasonably achievable (ALARA). [facility]: Dose Right [facility]: CareDose [facility]: Dose Right [facility]: Teradose 4D [facility]: [employer] CONTRAST TYPE AND DOSE: 100 cc Omnipaque 350- low osmolar. RENAL FUNCTION: None required. The patient is less than 50 years old. RADIATION DOSE: . LIMITATIONS: None. FINDINGS: LOWER CHEST: See separate report of the CT of the chest. LIVER: Normal size. No masses. No dilated ducts. SPLEEN: The spleen is normal but there is fluid around the spleen. There is a small amount of fluid medial to the liver as well. PANCREAS: No masses. No significant calcifications. No adjacent inflammation or peripancreatic fluid collections. Pancreatic duct not dilated. GALLBLADDER: No identified stones by CT criteria. No inflammatory changes to suggest cholecystitis. ADRENAL GLANDS: No significant masses or asymmetry. RIGHT KIDNEY AND URETER: No solid masses. No significant calcifications. No hydronephrosis or hyd roureter. LEFT KIDNEY AND URETER: No solid masses. No significant calcifications. No hydronephrosis or hydr oureter. AORTA AND VESSELS: No aneurysm. No dissection. Renal arteries, SMA, celiac without stenosis. RETROPERITONEUM: No retroperitoneal adenopathy, hemorrhage or masses. BOWEL AND PERITONEAL CAVITY: Small amount of air in the abdominal cavity. Small amount of fluid arou nd the spleen and in the mesentery area and in the right side of the pelvis. APPENDIX: Not identified. PELVIS: There is some free fluid in the pelvis. ABDOMINAL WALL: No masses. No hernias. BONES: No significant or acute finding. OTHER: No other significant finding. IMPRESSION: The significant finding in the abdomen and pelvis is the presence of some fluid and some free air. Considering the hysterectomy on September 06, is it reasonable that there should be some resi dual fluid and air in the abdomen? TECHNICAL DOCUMENTATION: JOB ID: [id number] Quality ID # [id number]: Final reports with documentation of one or more dose reduction techniques (e.g., Au tomated exposure control, adjustment of the mA and/or kV according to patient size, use of iterative reconstruction technique) 2010 [email or web address]- All Rights Reserved Reading location - IP/workstation name: [email or web address]
--- NOTE | 2019-09-11 17:52 | ER Document Report ---
ED General - General Chief Complaint: Abdominal Pain Stated Complaint: URINARY ISSUES,SHORTNESS OF BREATH Time Seen by Provider: 09/11/19 15:45 Mode of Arrival: Wheelchair TRAVEL OUTSIDE OF THE [place] IN LAST 30 DAYS: No - HPI Notes: Patient is a pleasant 34-year-old female who presents to the emergency department for evaluation of chest pain, abdominal pain, difficulty urinating. She had a laparoscopic hysterectomy performed on September 06 at the surgical center [facility]. She was discharged on September 08. She states she has been having chest and abdominal pain since then. She states she was having difficulty urinating while present in the surgical center, was not really feeling the urge to urinate, and was only urinating once a day, but states that that seems to have been getting worse. She states she has not urinated since yesterday. She has had no fevers or chills. No nausea or vomiting. She has sharp chest pain and abdominal pain. She states is worsened by deep breaths and movements. She is not moving her bowels. She has had a diminished appetite. - Related Data Allergies/Adverse Reactions: latex [Latex] Allergy (Severe, Verified 10/26/18 14:24) Rash, itchy Home Medications: Oxycodone, Tylenol, Motrin Past Medical History - General Information source: Patient - Social History Smoking Status: Never Smoker Family History: Reviewed & Not Pertinent Patient has homicidal ideation: No - Past Medical History Cardiac Medical History: Denies: Hx Coronary Artery Disease, Hx Heart Attack, Hx Pulmonary Embolism, Hx Heart Murmur Pulmonary Medical History: Denies: Hx Asthma, Hx Bronchitis, Hx COPD, Hx Pneumonia, Hx Sleep Apnea - not current, Hx Tuberculosis Neurological Medical History: Reports: Other - Cerebral palsy. Denies: Hx Cer ebrovascular Accident, Hx Seizures Endocrine Medical History: Renal/ Medical History: Reports: Hx Ovarian Cysts. Denies: Hx Peritoneal Dialysis GI Medical History: Reports: Hx Gastroesophageal Reflux Disease - with . Denies: Hx Hepatitis, Hx Hiatal Hernia, Hx Ulcer Musculoskeletal Medical History: Denies Hx Arthritis, Denies Hx Fibromyalgia Psychiatric Medical History: Reports: Hx Depression Traumatic Medical History: Denies: Hx Fractures Infectious Medical History: Denies: Hx Hepatitis, Hx HIV Past Surgical History: Reports: Hx Cardiac Surgery - x 3, Hx Section - x3, Hx Hysterectomy, Hx Tonsillectomy. Denies: Hx Mastectomy, Hx Open Heart Surgery, Hx Pacemaker - Immunizations Hx Diphtheria, Pertussis, Tetanus Vaccination: Yes Review of Systems - Review of Systems Constitutional: Weakness Cardiovascular: See HPI Genitourinary: See HPI -: Yes All other systems reviewed and negative Physical Exam - Vital signs Vitals: Temp Pulse Resp BP Pulse Ox 98.8 F 116 H 20 166/93 H 99 09/11/19 15:02 09/11/19 15:02 09/11/19 15:02 09/11/19 15:02 09/11/19 15:02 - Notes Notes: Is a 34-year-old female appears her stated age in a moderate amount of distress. She is clearly uncomfortable. Vital signs reviewed, please refer to chart. Head is normocephalic, atraumatic. Pupils equal round, reactive to light. Neck is supple without meningismus. Heart is regular rate and rhythm. Lungs are clear to auscultation bilaterally. Abdomen is soft, diffusely tender, normoactive bowel sounds throughout. She does have 4 well approximated laparoscopic abdominal wall scars, consistent with recent surgery, without signs of dehiscence or surrounding erythema. Extremities without cyanosis, clubbing. Posterior calves are nontender. Peripheral pulses are equal. Skin is warm and dry. Patient is awake, alert, cooperative with examiner. Course - Re-evaluation Re-evalutation: 09/11/19 17:50 Patient presents to the emergency department for evaluation. She presented to the emergency department tachycardic with chest pain, postoperative, and abdominal pain. She is also had some urinary retention. Orders are placed through triage. Laboratory investigations ordered. Patient has acute renal failure with a creatinine of nearly 4. CT scan of the chest, abdomen, pelvis, still shows some free fluid and air, likely consistent with recent laparoscopic surgery, but no other acute process. Caruso catheter is placed, she has over 400 cc out initially, still awaiting more drainage. She is given pain medication. Currently awaiting urinalysis. Patient states she does not wish to be transferred to [facility] if possible. Awaiting urinalysis, we will continue to monitor. 09/11/19 18:14 Patient is found to have a urinary tract infection. Her urine is sent for culture. She is given IV Rocephin. She already has blood cultures pending. I spoke with Dr. Mobley. He asked that I speak with surgery from [facility] and discuss, be sure there is no significant surgical intervention necessary. Images will be power shared, phone call to [facility] pending at this time. 09/11/19 18:[address] Waggoner, on-call MANAGER ORGANIZATIONAL. He states that, given the level of creatinine rise, he is concerned about the possibility of a bladder wall injury being responsible for these findings. [facility]. The patient is amenable to transfer to [facility] for further care. 09/11/19 20:58 Patient remained stable. I have spoken to her as well as her spouse about this. Blood pressure is now 152/90. She is given further pain medication. She is currently stable, awaiting transport. 09/11/19 21:24 Patient still stable, BP improved. Stable for transfer. - Vital Signs Vital signs: Temp Pulse Resp BP Pulse Ox 98.8 F 89 20 152/90 H 100 09/11/19 15:02 09/11/19 19:11 09/11/19 15:02 09/11/19 20:01 09/11/19 20:01 - Laboratory Result Diagrams: 09/11/19 16:01 09/11/19 16:01 Laboratory results interpreted by me: 09/11/19 09/11/19 09/11/19 16:01 16:01 17:38 WBC 10.6 H Hgb 9.2 L Hct 29.0 L MCV 68 L MCH 21.7 L MCHC 31.7 L RDW 31.8 H Lymph % (Auto) 9.3 L Absolute Neuts (auto) 8.7 H Seg Neutrophils % 82.3 H Sodium 136.2 L BUN 25 H Creatinine 3.78 H Est GFR ( Amer) 17 L Est GFR (MDRD) Non-Af 14 L Urine Protein 100 H Urine Glucose (UA) 150 H Urine Blood MODERATE H Ur Leukocyte Esterase SMALL H - Diagnostic Test Radiology reviewed: Image reviewed, Reports reviewed Radiology results interpreted by me: 09/11/19 18:52 Chest/Abdomen CTA 09/11/19 15:46 IMPRESSION: No pulmonary embolus. No aortic aneurysm or dissection. Airspace disease in the lower lobes likely atelectasis. Abdomen/Pelvis CT 09/11/19 15:48 IMPRESSION: The significant finding in the abdomen and pelvis is the presence of some fluid and some free air. Considering the hysterectomy on September 06, is it reasonable that there should be some residual fluid and air in the abdomen? - EKG Interpretation by Me Additional EKG results interpreted by me: 09/11/19 18:56 Sinus tachycardia with a rate of 100 bpm. Normal axis and intervals. No acute ST changes concerning for ischemia or infarction. Discharge - Discharge Clinical Impression: Urinary retention, Possible bladder wall injury Acute renal failure Qualifiers: Acute renal failure type: unspecified Qualified Code(s): N17.9 - Acute kidney failure, unspecified UTI (urinary tract infection) Qualifiers: Urinary tract infection type: site unspecified Hematuria presence: with hematuria Qualified Code(s): N39.0 - Urinary tract infection, site not specified Condition: Stable Disposition: [facility] Admitting Provider: Dr. Waggoner
[2019-09-11 18:00] LABS: APPEARANCE,URINE CLOUDY; BILIRUBIN,URINE NEGATIVE (NEGATIVE); COLOR,URINE YELLOW; GLUCOSE, URINE 150 mg/dL (NEGATIVE); KETONES,URINE NEGATIVE (NEGATIVE); LEUKOCYTE ESTERASE,URINE SMALL (NEGATIVE); NITRITE,URINE NEGATIVE (NEGATIVE); PROTEIN,URINE 100 mg/dL (NEGATIVE); URINE SPECIFIC GRAVITY 1.023; UROBILINOGEN,URINE NEGATIVE mg/dL (<2.0)
--- NOTE | 2019-09-11 18:00 | EKG REPORT ---
SEVERITY:- ABNORMAL ECG - SINUS TACHYCARDIA CONSIDER LEFT VENTRICULAR HYPERTROPHY : Confirmed by: Chip Andino MD 11-Sep-2019 17:59:43
[2019-09-11] MEDS ORDERED: CEFTRIAXONE 1 GM/D5W RTU 1 GM/50 ML RTUPB IV ONE (18:09)
[2019-09-11] MEDS ORDERED: NORMAL SALINE 1000 ML 1,000 ML IV ONE (18:54)
[2019-09-11 22:04] VITALS: BP 148/96
== END 2019-09-11 22:15 | disposition short-term general hospital (02) ==
LOC: ER 14:54
DX: N39.0 Urinary tract infection, site not specified (principal); R31.9 Hematuria, unspecified; R33.9 Retention of urine, unspecified; N17.9 Acute kidney failure, unspecified; R10.9 Unspecified abdominal pain; R00.0 Tachycardia, unspecified; R39.198 Other difficulties with micturition; R06.02 Shortness of breath; R07.9 Chest pain, unspecified; R63.0 Anorexia; Z90.710 Acquired absence of both cervix and uterus; Z79.899 Other long term (current) drug therapy; Z88.8 Allergy status to other drugs, medicaments and biological substances; G80.9 Cerebral palsy, unspecified
CPT/HCPCS: 93005; 96376; 99285; 96361; 51702; 96374; 96375; 36415; 87040; 87086; 85025; 80053; 81001; 71275; 74177; 93010; J2270; J2405; J7030; J0696; J3490

== ENCOUNTER 2019-09-24 13:02 | Emergency (ER) | payer MEDICAID ==
--- NOTE | 2019-09-24 13:22 | ER Document Report ---
ED Medical Screen (RME) - General Chief Complaint: Urinary Problem Stated Complaint: BLOOD IN URINE/URINARY PROBLEM Time Seen by Provider: 09/24/19 13:13 Mode of Arrival: Wheelchair Information source: Patient Notes: HPI; 34-year-old female with significant recent surgical history uterine fibroids with hysterectomy, was transferred to [facility] on September 10 which she states they had to reopen a previous surgery scar, states she went into kidney failure had to have drains and a Caruso put in. Was discharged home on a Caruso catheter. She states this morning she noticed blood in the catheter. did change catheter this morning. Also noticed some cloudy urine with debris in the catheter. Still complaining of right flank pain. Denies fevers. PE: Oriented x3. Mild distress noted. Lungs: Clear to auscultation without rales, rhonchi, wheezes. Heart: Regular rate rhythm without murmurs, rubs, gallops. Right CVA tenderness. Caruso catheter currently draining clear yellow urine. Unable to do full assessment in triage. I have greeted and performed a rapid initial assessment of this patient. A comprehensive ED assessment and evaluation of the patient, analysis of test results and completion of the medical decision making process will be conducted by additional ED providers. I have specifically instructed the patient or family members with the patient to immediately return to any nursing staff should anything change in the patient's condition or with their chief complaint. TRAVEL OUTSIDE OF THE [place] IN LAST 30 DAYS: No - Related Data Allergies/Adverse Reactions: latex [Latex] Allergy (Severe, Verified 10/26/18 14:24) Rash, itchy Past Medical History - Past Medical History Cardiac Medical History: Reports: Hx Hypertension Denies: Hx Coronary Artery Disease, Hx Heart Attack, Hx Pulmonary Embolism, Hx Heart Murmur Pulmonary Medical History: Denies: Hx Asthma, Hx Bronchitis, Hx COPD, Hx Pneumonia, Hx Sleep Apnea - not current, Hx Tuberculosis Neurological Medical History: Denies: Hx Cerebrovascular Accident, Hx Seizures Endocrine Medical History: Renal/ Medical History: Reports: Hx Ovarian Cysts. Denies: Hx Peritoneal Dialysis GI Medical History: Reports: Hx Gastroesophageal Reflux Disease - with . Denies: Hx Hepatitis, Hx Hiatal Hernia, Hx Ulcer Musculoskeltal Medical History: Denies Hx Arthritis, Denies Hx Fibromyalgia Psychiatric Medical History: Reports: Hx Depression Traumatic Medical History: Denies: Hx Fractures Infectious Medical History: Denies: Hx Hepatitis, Hx HIV Past Surgical History: Reports: Hx Cardiac Surgery - x 3, Hx Section - x3, Hx Hysterectomy, Hx Tonsillectomy. Denies: Hx Mastectomy, Hx Open Heart Surgery, Hx Pacemaker - Immunizations Hx Diphtheria, Pertussis, Tetanus Vaccination: Yes Physical Exam - Vital signs Vitals: Temp Pulse Resp BP Pulse Ox 98.5 F 86 18 177/96 H 99 09/24/19 13:08 09/24/19 13:08 09/24/19 13:08 09/24/19 13:08 09/24/19 13:08 Course - Vital Signs Vital signs: Temp Pulse Resp BP Pulse Ox 98.5 F 86 18 177/96 H 99 09/24/19 13:08 09/24/19 13:08 09/24/19 13:08 09/24/19 13:08 09/24/19 13:08
[2019-09-24 13:52] LABS: ABSOLUTE BASOPHILS # (AUTO) 0.1 10^3/uL (0.0-0.2); ABSOLUTE EOSINOPHILS # (AUTO) 0.5 10^3/uL (0.0-0.6); ABSOLUTE LYMPHOCYTES (AUTO) 1.1 10^3/uL (0.5-4.7); ABSOLUTE MONOCYTES (AUTO) 0.3 10^3/uL (0.1-1.4); ABSOLUTE NEUT (AUTO) 7.4 10^3/uL (1.7-8.2); BASOPHILS % (AUTO) 0.8 % (0-2); EOSINOPHILS % (AUTO) 5.2 % (0-6); HEMATOCRIT 31.8 % (36.0-47.0); HEMOGLOBIN 10.3 g/dL (12.0-15.5); LYMPHOCYTES % (AUTO) 11.5 % (13-45); MEAN CORPUSCULAR HEMOGLOBIN 22.3 pg (27.0-33.4); MEAN CORPUSCULAR HGB CONC 32.4 g/dL (32.0-36.0); MEAN CORPUSCULAR VOLUME 69 fl (80-97); MONOCYTES % (AUTO) 3.2 % (3-13); PLATELET COUNT 348 10^3/uL (150-450); RED BLOOD COUNT 4.62 10^6/uL (3.72-5.28); RED CELL DISTRIBUTION WIDTH 29.1 % (11.5-14.0); SEGMENTED NEUTROPHILS % (AUTO) 79.3 % (42-78); TOTAL CELLS COUNTED % (AUTO) 100 %; WHITE BLOOD COUNT 9.3 10^3/uL (4.0-10.5)
[2019-09-24 14:05] LABS: ALBUMIN 4.3 g/dL (3.5-5.0); ALKALINE PHOSPHATASE 61 U/L (38-126); ANION GAP 9 (5-19); ASPARTATE AMINO TRANSFERASE 22 U/L (14-36); BILIRUBIN,TOTAL 0.3 mg/dL (0.2-1.3); BLOOD UREA NITROGEN 12 mg/dL (7-20); CALCIUM 9.5 mg/dL (8.4-10.2); CARBON DIOXIDE 28 mmol/L (22-30); CHLORIDE 103 mmol/L (98-107); GLUCOSE 119 mg/dL (75-110); POTASSIUM 3.9 mmol/L (3.6-5.0); TOTAL PROTEIN 8.1 g/dL (6.3-8.2)
[2019-09-24 14:18] LABS: ANISOCYTOSIS 4+; HYPOCHROMASIA 2+; OVALOCYTES 2+; PLATELET COMMENT ADEQUATE; TEAR DROP CELLS SLIGHT
[2019-09-24] MEDS ORDERED: ONDANSETRON HCL INJ/PF 4 MG/2 ML SDV IV ONE (14:21)
[2019-09-24] MEDS ORDERED: NORMAL SALINE 1000 ML 1,000 ML IV ONE (14:21)
[2019-09-24] MEDS ORDERED: MORPHINE SULFATE 10 MG/ML INJ IV ONE (14:21)
--- NOTE | 2019-09-24 14:21 | ER Document Report ---
Entered by VINCENZO PRICE SCRIBE 09/24/19 1403 Acting as scribe for:GRISEL LOTT MD ED GI/ - General Mode of Arrival: Wheelchair Information source: Patient TRAVEL OUTSIDE OF THE [place] IN LAST 30 DAYS: No <GRISEL LOTT - Last Filed: 09/24/19 17:15> <ROXANA MATTHEWS - Last Filed: 09/24/19 18:04> - General Chief Complaint: Urinary Problem Stated Complaint: BLOOD IN URINE/URINARY PROBLEM Time Seen by Provider: 09/24/19 13:13 Notes: This 34 year old female patient presents to the emergency department today with complaints of lower abdominal cramping, lower back pain, headache, and dizziness for the last few days. Patient had a hysterectomy at [facility] on September 06, discharged on September 08. She was seen here on September 10 and was found to have some urinary retention and acute kidney failure. Patient was transferred back to [facility]. She was found to have a hole in her bladder and a drain was placed in her left pelvis. This drain was removed a few days ago. Patient denies fevers. She noticed that her urine had been quite dark to orange in color, but it has cleared up at this time. She did have a picture of the urine on her cell phone. She also reports that she is been having a thick, milky and bloody vaginal discharge with a strange odor for the past 3 to 4 days. (GRISEL LOTT) - Related Data Allergies/Adverse Reactions: latex [Latex] Allergy (Severe, Verified 10/26/18 14:24) Rash, itchy Past Medical History - General Information source: Patient - Social History Smoking Status: Never Smoker Cigarette use (# per day): No Frequency of alcohol use: None Drug Abuse: None Lives with: Family Family History: Reviewed & Not Pertinent - Past Medical History Cardiac Medical History: Reports: Hx Hypertension Endocrine Medical History: Renal/ Medical History: Reports: Hx Ovarian Cysts GI Medical History: Reports: Hx Gastroesophageal Reflux Disease - with Psychiatric Medical History: Reports: Hx Depression Past Surgical History: Reports: Hx Cardiac Surgery - x 3, Hx Section - x3, Hx Hysterectomy, Hx Tonsillectomy - Immunizations Hx Diphtheria, Pertussis, Tetanus Vaccination: Yes <GRISEL LOTT - Last Filed: 09/24/19 17:15> Review of Systems - Review of Systems Constitutional: denies: Fever EENT: No symptoms reported Cardiovascular: See HPI, Dizziness Respiratory: No symptoms reported Gastrointestinal: See HPI, Abdominal pain Genitourinary: No symptoms reported Female Genitourinary: No symptoms reported Musculoskeletal: See HPI, Back pain Skin: No symptoms reported Hematologic/Lymphatic: No symptoms reported Neurological/Psychological: See HPI, Headaches -: Yes All other systems reviewed and negative <GRISEL LOTT - Last Filed: 09/24/19 17:15> Physical Exam - General General appearance: Appears well, Alert In distress: None - HEENT Head: Normocephalic, Atraumatic Eyes: Normal Pupils: PERRL - Respiratory Respiratory status: No respiratory distress Breath sounds: Normal - Cardiovascular Rhythm: Regular Heart sounds: Normal auscultation Murmur: No - Abdominal Inspection: Obese Distension: No distension Bowel sounds: Normal Tenderness: Tender - There is some tenderness to palpate in the lower abdomen and suprapubic region. The previous left pelvic drain site is well-healed. - Genitourinary External exam: Other - The patient has a Caruso catheter. Speculum exam: Other - There is a yellow-white blood-tinged vaginal discharge found on speculum exam, this liquid was sent for culture and wet prep. - Extremities General upper extremity: Normal inspection General lower extremity: Normal inspection - Neurological Neuro grossly intact: Yes - Psychological Associated symptoms: Normal affect, Normal mood - Skin Skin Temperature: Warm Skin Moisture: Dry Skin Color: Normal <GRISEL LOTT - Last Filed: 09/24/19 17:15> - Vital signs Vitals: Temp Pulse Resp BP Pulse Ox 98.5 F 86 18 177/96 H 99 09/24/19 13:08 09/24/19 13:08 09/24/19 13:08 09/24/19 13:08 09/24/19 13:08 Course - Laboratory Result Diagrams: 09/24/19 13:30 09/24/19 13:30 - Diagnostic Test Radiology reviewed: Reports reviewed - Ultrasound today shows a mild left hydronephrosis which is new since the CT scan done on 09/11/2019. There are no other significant new findings. - Transfer of Care Care transferred to following provider: Dr. Matthews <GRISEL LOTT - Last Filed: 09/24/19 17:15> - Laboratory Result Diagrams: 09/24/19 13:30 09/24/19 13:30 <ROXANA MATTHEWS - Last Filed: 09/24/19 18:04> - Re-evaluation Re-evalutation: 09/24/19 16:33 The wet prep showed 3+ epithelials, 4+ bacteria, 2+ WBCs. No trichomonas and no yeast. Urinalysis showed urine specific gravity 1.020 with trace leukocyte esterase. There were 10 WBCs, 68 RBCs, trace bacteria. There was budding yeast present. The BUN is 12 and the serum creatinine is 0.64 and LFTs are normal. White blood cell count is 9300 with 79 segs, 11.5 lymphs, 3 monos, 5 eosinophils. Hemoglobin is 10.3 The ultrasound compared to a CT scan of the abdomen pelvis on 09/11/2019 shows a new mild left hydronephrosis. 09/24/19 17:16 I put a call in to the patient's doctors at [facility] at 1646 2 discussed the case and see how this ultrasound compared to most recent imaging that may have been done during her most recent stay. (GRISEL LOTT) 09/24/19 18:[address] Waggoner at [facility] who states that mild hydro was present at their facility He is concerned for potential cuff infection vs fistula but feels that patient's labs and vitals support that outpatient follow up with him tomorrow is adriel ropriate Patient and family feel comfortable with this plan and agree to call his office tomorrow to arrange for an appointment time They have been counseled on return precautions at time of dc (ROXANA MATTHEWS) - Vital Signs Vital signs: Temp Pulse Resp BP Pulse Ox 98.5 F 86 18 177/96 H 99 09/24/19 13:08 09/24/19 13:08 09/24/19 13:08 09/24/19 13:08 09/24/19 13:08 - Laboratory Laboratory results interpreted by me: 09/24/19 09/24/19 09/24/19 13:30 13:30 14:31 Hgb 10.3 L Hct 31.8 L MCV 69 L MCH 22.3 L RDW 29.1 H Lymph % (Auto) 11.5 L Seg Neutrophils % 79.3 H Glucose 119 H Urine Protein 100 H Urine Blood MODERATE H Ur Leukocyte Esterase TRACE H - Transfer of Care Notes: 09/24/19 17:20 Currently waiting on [facility] (GRISEL LOTT) Discharge <GRISEL LOTT - Last Filed: 09/24/19 17:15> <ROXANA MATTHEWS - Last Filed: 09/24/19 18:04> - Discharge Clinical Impression: Abdominal pain Qualifiers: Abdominal location: unspecified location Qualified Code(s): R10.9 - Unspecified abdominal pain Condition: Stable Disposition: HOME, SELF-CARE Instructions: Abdominal Pain ([facility]) Additional Instructions: It is very important that you call [facility] tomorrow to arrange for follow up with Dr Waggoner He is concerned that you either have a vaginal cuff infection from your surgery or have developed a fistula Please return to the ED with worsening concerns to include primarily increasing pain or fever I personally performed the services described in the documentation, reviewed and edited the documentation which was dictated to the scribe in my presence, and it accurately records my words and actions.
[2019-09-24 15:00] LABS: AMORPHOUS SEDIMENT,URINE TRACE /HPF; APPEARANCE,URINE SLIGHTLY-CLOUDY; BILIRUBIN,URINE NEGATIVE (NEGATIVE); COLOR,URINE YELLOW; GLUCOSE, URINE NEGATIVE (NEGATIVE); KETONES,URINE NEGATIVE (NEGATIVE); LEUKOCYTE ESTERASE,URINE TRACE (NEGATIVE); NITRITE,URINE NEGATIVE (NEGATIVE); PROTEIN,URINE 100 mg/dL (NEGATIVE); UROBILINOGEN,URINE NEGATIVE mg/dL (<2.0)
[2019-09-24 15:51] LABS: BACTERIA (WET MOUNT) 4+ BACTERIA SEEN; EPITHELIALS (WET MOUNT) 3+ EPITHELIALS SEEN; T.VAGINALIS (WET MOUNT) NO TRICHOMONAS SEEN; WBCS (WET MOUNT) 2+ WBCS SEEN; YEAST (WET MOUNT) NO YEAST SEEN
--- NOTE | 2019-09-24 15:52 | RADIOLOGY REPORT (SQ) ---
EXAM DESCRIPTION: U/S RETROPERITON (RENAL/AORTA) IMAGES COMPLETED DATE/TIME: 09/24/2019 3:36 pm REASON FOR STUDY: flank pain COMPARISON: CT abdomen and pelvis 09/11/2019. TECHNIQUE: Dynamic and static grayscale images acquired of the kidneys and bladder and recorded on P ACS. Additional selected color Doppler images recorded. LIMITATIONS: None. FINDINGS: RIGHT KIDNEY: The right kidney measures 11.1 x 4.3 x 5.7 cm. Normal echogenicity. There i s no hydronephrosis. There is an 8 mm calculus at the inferior pole of the right kidney. LEFT KIDNEY: The left kidney measures 11.0 x 4.6 x 4.9 cm. Normal echogenicity. There is mild left hydronephrosis. No calcifications. BLADDER: Decompressed by a Caruso catheter. IMPRESSION: 1. Mild left hydronephrosis. 2. No right hydronephrosis. Nonobstructing right nephrolithiasis. TECHNICAL DOCUMENTATION: JOB ID: [id number] 2010 [employer] All Rights Reserved Reading location - IP/workstation name: [email or web address]
[2019-09-24 18:25] VITALS: BP 155/97
== END 2019-09-24 18:23 | disposition home or self-care (01) ==
LOC: ER 13:02
DX: N20.0 Calculus of kidney (principal); N13.30 Unspecified hydronephrosis; R10.30 Lower abdominal pain, unspecified; M54.5 Low back pain; R51 Headache; R42 Dizziness and giddiness; N89.8 Other specified noninflammatory disorders of vagina; I10 Essential (primary) hypertension; Z90.710 Acquired absence of both cervix and uterus; Z98.890 Other specified postprocedural states; Z91.040 Latex allergy status
CPT/HCPCS: 99284; 96361; 96374; 96375; 36415; 87086; 87070; 87210; 83605; 85025; 87075; 87077; 80053; 81001; 87186; 76770; J2270; J2405; J7030; 87205